=== PATIENT | male | born 1935 | race Caucasian/White ===

== ENCOUNTER → 2017-04-16 | Outpatient (CLI) | payer OTHER ==
[~2017-04-16] MED LIST: IOPAMIDOL (ISOVUE-M 200) 20 ML VIAL ONE; IOPAMIDOL (ISOVUE-M 300) 15 ML VIAL ONE; LIDOCAINE 1% 30 ML SDV ONE; NA BICARBONATE 50 MEQ/50 ML VIAL ONE
== END ==
LOC: FIMAGING 08:29
PROVIDERS: ATTEND Neurological Surgery
PROC: B02BZZZ Computerized Tomography (CT Scan) of Spinal Cord (ICD-10-PCS; principal; 2017-04-16)
DX: M54.16 Radiculopathy, lumbar region (principal)
CPT/HCPCS: 62304; 72132; 72265; Q9966; Q9967

== ENCOUNTER → 2017-04-24 | Outpatient (CLI) | payer OTHER | LOC: BHFA 14:00 | PROVIDERS: ATTEND Internal Medicine Cardiovascular Disease | DX: Z01.818 Encounter for other preprocedural examination (principal); R94.31 Abnormal electrocardiogram [ECG] [EKG]; I25.10 Atherosclerotic heart disease of native coronary artery without angina pectoris; I48.0 Paroxysmal atrial fibrillation ==

== ENCOUNTER → 2017-04-25 | Outpatient (CLI) | payer OTHER | LOC: BHLMT 14:00 | PROVIDERS: ATTEND Internal Medicine Cardiovascular Disease | DX: Z01.810 Encounter for preprocedural cardiovascular examination (principal); I25.10 Atherosclerotic heart disease of native coronary artery without angina pectoris | CPT/HCPCS: 78452; 93017; A9500 ==

== ENCOUNTER 2017-05-15 05:50 | Inpatient (IN) | payer OTHER ==
[2017-05-15] MEDS ORDERED: CHLORHEXIDINE GLUC HIBICLENS 118 ML BTL TP ONE (06:00)
[2017-05-15] MEDS ORDERED: CEFUROXIME 1,500 MG in NS 50 ML IV ONE (06:00)
[2017-05-15] MEDS ORDERED: LIDOCAINE 1% 5 ML SDV ID PRN (06:14)
[2017-05-15] MEDS ORDERED: LR 1,000 ML IV ONE (06:14)
--- NOTE | 2017-05-15 06:38 | PDHPUP ---
History & Physical Update H&P update statement: This history and physical update is based on an assessment of the patient which was completed after admission or registration (within 24 hours), but prior to the surgery/procedure. H&P update: H&P reviewed & patient examined, no change in patient's condition since H&P completed
[2017-05-15] MEDS ORDERED: THROMBIN (BOVINE) 5,000 UNIT VIAL TP ONE (06:40)
[2017-05-15] MEDS ORDERED: SILDENAFIL CITRATE 50 MG TAB PO PRN (06:40)
[2017-05-15] MEDS ORDERED: BUPIVACAINE/EPI 0.25% 30 ML SDV ONE (06:41)
[2017-05-15] MEDS ORDERED: BACITRACIN 50,000 UNITS/10 ML SYR IRR ONE ×2 (06:41→07:10)
[2017-05-15] MEDS ORDERED: MAGNESIUM HYDROXIDE 30 ML UDCUP PO PRN (06:42)
[2017-05-15] MEDS ORDERED: NALOXONE HCL 0.4 MG/ML INJ IVP PRN ×2 (06:42→12:52)
[2017-05-15] MEDS ORDERED: diphenhydrAMINE 25 MG CAP PO PRN (06:42)
[2017-05-15] MEDS ORDERED: ONDANSETRON 4 MG/2 ML VIAL IVP PRN ×2 (06:42→12:52)
[2017-05-15] MEDS ORDERED: BISACODYL 10 MG SUPP PR PRN (06:42)
[2017-05-15] MEDS ORDERED: LACTULOSE 20 GM/30 ML UDCUP PO PRN (06:42)
[2017-05-15] MEDS ORDERED: ONDANSETRON DISINTEGRATING 4 MG TAB PO PRN (06:46)
--- NOTE | 2017-05-15 06:58 | PDANEPAE ---
ANE History of Present Illness 81 yo M h/o stenosis, here for L3-4 L4-5 TLIF ANE Past Medical History - Cardiovascular History Hx Hypertension: Yes Hx Arrhythmias: Yes Hx Chest Pain: Yes Hx Coronary Artery / Peripheral Vascular Disease: Yes Hx CHF / Valvular Disease: No Hx Palpitations: No - Pulmonary History Hx COPD: No Hx Asthma/Reactive Airway Disease: No Hx Recent Upper Respiratory Infection: No Hx Oxygen in Use at Home: No - Neurologic History Hx Cerebrovascular Accident: No Hx Seizures: No Hx Dementia: No - Endocrine History Hx Diabetes: Yes - Renal History Hx Renal Disorders: No - Liver History Hx Hepatic Disorders: No - Neurological & Psychiatric Hx Hx Neurological and Psychiatric Disorders: Yes - Cancer History Hx Cancer: Yes - Congenital Disorder History Hx Congenital Disorders: No - GI History Hx Gastrointestinal Disorders: Yes - Chronic Pain History Chronic Pain: Yes ANE Review of Systems - Exercise capacity METS (RN): 4 METS - Systems Respiratory: Reports: other (SUPRIYA w CPAP) Genitourinary: Reports: other (GERD) - Cardio Pulmonary Function Testing Nuclear stress test: April 2017-EF 70%, equivocal EKG, considered negative by cardiology ANE Patient History - Allergies Allergies/Adverse Reactions: tetracycline [Tetracycline] Allergy (Severe, Verified 04/23/17 15:37) Other-Enter Comments - Home Medications Home medications: home medication list seen and reviewed Home Medications: ARIPiprazole [Abilify 5 mg (*)] 5 mg PO Q2D 02/15/16 [Last Taken 08/31/16] Finasteride [Proscar 5 MG (*)] 5 mg PO HS 02/15/16 [Last Taken 08/31/16] Hydrochlorothiazide [HCTZ (*)] 12.5 mg PO DAILY 02/15/16 [Last Taken 09/01/16] Eszopiclone [Lunesta] 2 mg PO HS #0 04/30/16 [Last Taken 08/31/16] Tapentadol HCl [Nucynta ER] 100 mg PO BID@08,20 #0 05/31/16 [Last Taken 08:00] Citalopram [CeleXA 20 MG] 50 mg PO DAILY 09/01/16 [Last Taken 09/01/16] Famotidine [Pepcid] 40 mg PO DAILY 09/01/16 [Last Taken 09/01/16] Metoprolol Succinate Xr [Toprol Xl 25 mg (*)] 25 mg PO DAILY 09/01/16 [Last Taken 05/15/17] Rivaroxaban [Xarelto] 20 mg PO HS 09/01/16 [Last Taken 08/31/16] Rosuvastatin Calcium [Crestor] 10 mg PO HS 09/01/16 [Last Taken 08/31/16] oxyCODONE IR [Oxycodone Ir (*)] 5 mg PO Q4H PRN 09/01/16 [Last Taken 09/01/16] metFORMIN HCL [Glucophage 500 mg (*)] 500 mg PO BIDMEAL 09/02/16 [Last Taken 12/17] Cholecalciferol Vit D3 [Vitamin D3 2000 units tab (OTC)] 2,000 units PO DAILY [Last Taken Unknown] Herbals/Supplements -Info Only 1 ea PO DAILY 04/19/17 [Last Taken Unknown] Sildenafil Citrate [Viagra 50 MG (*)] 50 mg PO DAILY PRN 04/19/17 [Last Taken Unknown] - NPO status NPO Since - Liquids (Date): 05/14/17 NPO Since - Liquids (Time): 21:00 NPO Since - Solids (Date): 05/14/17 NPO Since - Solids (Time): 21:00 - Anes Hx Anes Hx: no prior problems - Smoking Hx Smoking Status: Never smoked - Alcohol Use Alcohol Use: Rarely - Family Anes Hx Family Anes Hx: none Family Hx Anesthesia Complications: NA ANE Labs/Vital Signs - Labs - CBC WBC: 6.3 HGB: 17.1 HCT: 47.8 - Labs - BMP Sodium: 139 Potassium: 4.4 Chloride: 99 CO2: 28 Glucose: 151 BUN: 17 Creatinine: 1.03 - Vital Signs Blood Pressure: 132/71 Heart Rate: 64 Respiratory Rate: 16 O2 Sat (%): 92 Height: 177.8 cm Weight: 95.254 kg ANE Physical Exam - Airway Neck exam: decreased ROM, increased neck circumference Mallampati Score: Class 3 Mouth exam: normal dental/mouth exam - Pulmonary Pulmonary: no respiratory distress - Cardiovascular Cardiovascular: regular rate and rhythym - ASA Status ASA Status: III ANE Anesthesia Plan Anesthesia Plan: general endotracheal anesthesia Lines/Monitors: arterial line
[2017-05-15] MEDS ORDERED: MIDAZOLAM 2 MG/2 ML VIAL IVP ONE (07:05)
[2017-05-15] MEDS ORDERED: fentaNYL 100 MCG/2 ML INJ ONE ×2 (07:20→14:41)
[2017-05-15] MEDS ORDERED: REMIFENTANIL HCL 1 MG VIAL ONE ×3 (07:20→11:35)
[2017-05-15] MEDS ORDERED: KETAMINE 100 MG/10 ML SYR ONE (07:21)
[2017-05-15] MEDS ORDERED: PROPOFOL 200 MG/20 ML VIAL ONE (07:21)
[2017-05-15] MEDS ORDERED: PROPOFOL/EMULSION 500 MG/50 ML BOTTLE IV ONE ×3 (07:21→11:36)
[2017-05-15] MEDS ORDERED: ROCURONIUM 50 MG/5 ML VIAL ONE (07:25)
[2017-05-15] MEDS ORDERED: LIDOCAINE 2% 100 MG/5 ML SYR ONE (07:25)
[2017-05-15] MEDS ORDERED: PHENYLEPHRINE HCL 100 MCG/ML SYR ONE ×3 (08:30→12:22)
[2017-05-15] MEDS ORDERED: FAMOTIDINE 20 MG TAB PO SCH (09:00)
[2017-05-15] MEDS ORDERED: OXYCODONE/APAP 5/325 TAB PO PRN (12:52)
[2017-05-15] MEDS ORDERED: ACETAMINOPHEN 500 MG TAB PO PRN (12:52)
[2017-05-15] MEDS ORDERED: PROMETHAZINE HCL 25 MG/ML INJ IVP PRN (12:52)
[2017-05-15] MEDS ORDERED: HYDROmorphONE/DILAUDID 2 MG/ML INJ ONE ×2 (13:17→15:06)
--- NOTE | 2017-05-15 14:24 | SOAPPROG ---
SOAP Progress Note Assessment/Plan: Post Op Visit: S: Awake and alert, NAD. Pt with expected lower back pain/abd pain-incisional O: AFVSS/PERRLA/EOMI no droop CN 2-12 grossly intact +lt touch 5/5 BUE/BLE = CDI x 2 no drain A/P: 81 yo male that is s/p TLIF at L3/4 and L4/5 with removal of SCS -orders in place -Dr Delgado to see pt as well -flat for 3 days -call with any questions or concerns 05/15/17 14:22 Objective: Vital Signs Temp Pulse Resp BP Pulse Ox 36.8 C 64 16 132/71 H 92 05/15/17 06:38 05/15/17 07:05 05/15/17 07:05 05/15/17 07:05 05/15/17 07:05 ICD10 Worksheet Patient Problems: Problems Problem Status Onset Failed spinal cord stimulator Acute Lumbago Acute Lumbar stenosis Acute Neurogenic claudication Acute CAD (coronary artery disease) Acute Hyperlipemia Acute Ribs, multiple fractures Acute - ICD10 Problem Qualifiers (1) Lumbar stenosis (2) Lumbago Qualifiers: Chronicity: C Back pain laterality: B Sciatica presence: S Sciatica laterality: S (3) Failed spinal cord stimulator Qualifiers: Encounter type: E (4) Neurogenic claudication
[2017-05-15] MEDS: fentaNYL 100 MCG/2 ML INJ IVP PRN ×2 (14:43→14:50)
[2017-05-15] MEDS: HYDROmorphONE/DILAUDID 1 MG/ML SYR IVP PRN ×2 (15:16→15:31)
[2017-05-15] MEDS ORDERED: HYDROmorphONE/DILAUDID 1 MG/ML SYR IVP PRN (15:18)
[2017-05-15] MEDS ORDERED: HYDROmorphONE/DILAUDID 2 MG/ML INJ IVP PRN (15:47)
--- NOTE | 2017-05-15 16:20 | POSTANESTH ---
Post Anesthetic Evaluation Cardiovascular Status: Normal, Stable, Similar to Pre-Op Cond Respiratory Status: Normal, Stable, Similar to Pre-op Cond. Level of Consciousness/Mental Status: Can Participate in Eval, Moderately Sleepy Pain Control: Adequate, Prn Tx Ordered Nausea/Vomiting Control: Adequate, Prn Tx Ordered Complications Possibly Related to Anesthesia: None Noted
[2017-05-15] MEDS: HYDROCHLOROTHIAZIDE 12.5 MG CAP PO SCH (16:37)
[2017-05-15] MEDS: metFORMIN HCL 500 MG TAB PO SCH ×2 (16:37→17:57)
[2017-05-15] MEDS: METOPROLOL SUCCINATE XR 25 MG TAB PO SCH (16:37)
[2017-05-15] MEDS: CITALOPRAM 20 MG TAB PO SCH (16:38)
[2017-05-15] MEDS: FAMOTIDINE 20 MG TAB PO SCH ×2 (16:38→18:32)
[2017-05-15] MEDS: ARIPiprazole 5 MG TAB PO SCH (16:38)
[2017-05-15] MEDS: morphINE SR 15 MG TAB PO SCH ×2 (16:39→20:07)
[2017-05-15] MEDS: TAPENTADOL HCL 100 MG PO SCH ×2 (16:40→21:25)
[2017-05-15] MEDS: SENNOSIDES/DOCUSATE SODIUM TAB PO SCH ×2 (16:40→20:07)
[2017-05-15] MEDS: oxyCODONE IR 5 MG TAB PO PRN ×2 (16:47→21:25)
[2017-05-15] MEDS: ACETAMINOPHEN 325 MG TAB PO PRN ×2 (16:48→21:25)
[2017-05-15] MEDS: NS 1,000 ML IV SCH (16:49)
[2017-05-15] MEDS: ceFAZolin 2 GM/DEXTROSE 100 ML IV SCH ×2 (16:50→21:24)
--- NOTE | 2017-05-15 17:00 | GOP ---
[f rep st] OPERATIVE REPORT DATE OF OPERATION: 05/15/2017 SURGEON: Chele Delgado MD PREOPERATIVE DIAGNOSIS: Severe low back pain, lumbar spondylolisthesis L4-5, lumbar degenerative di sk disease, severe lumbar stenosis L4-5, L3-4, chronic low back pain, failed thoracic spinal cord st imulator, percutaneous electrodes, and pulse generator. POSTOPERATIVE DIAGNOSIS: Severe low back pain, lumbar spondylolisthesis L4-5, lumbar degenerative d isk disease, severe lumbar stenosis L4-5, L3-4, chronic low back pain, failed thoracic spinal cord s timulator, percutaneous electrodes, and pulse generator. PROCEDURE PERFORMED: 1. Posterolateral and intervertebral arthrodesis at L3-4, L4-5, with bilateral decompressions L3-4, L4-5, and a posterolateral and intervertebral arthrodesis at those levels ([id number]), posterior segmental instrumentation L3, L4, L5 ([id number]), microscope, spinal stereotaxy, same-incision bone gra ft harvest, placement of expandable biomechanical intervertebral device without anchors at L3-4, L4- 5. 2. Removal of entire spinal cord stimulator electrode system of percutaneous electrode leads, lead extensions, removal of ventral pulse generator. There are 3 separate incisions total for both of th dhiraj surgeries. FINDINGS: INDICATIONS: The patient is a 81-year-old, who has a long history of severe axial low back pain and actually underwent spinal cord stimulator placement for his chronic pain. This ultimately failed. There was no complication from the stimulator, but it simply lost its effectiveness and he was no l onger using it. He also had terrible spondylolisthesis at L4-5, critical spinal stenosis at that le randy. He also had spinal stenosis at L3-4, and I suggested 2-level lumbar laminectomy and fusion at L3-4, L4-5, and the risk of adjacent segment disease was discussed. He knew there was a chance surg jose would fail to eliminate his pain. He knew there was risk of nerve injury, spinal fluid leak, ps eudoarthrosis, and the possible need for future surgery. We discussed his spinal cord stimulator, w yrn prevents him from getting an MRI, and he was no longer using this. It no longer provided effec tive pain relief and he did decide to have this removed. At the time of our original posting of the surgery, the patient did not necessarily want it removed, but he did elect to have it removed today , and that decision was made this morning. There were no complications or anything wrong with the s timulator itself, it just simply was not effective and it was now a useless foreign body in his body . He did want it removed. DESCRIPTION OF PROCEDURE: Patient was taken to the operating room, placed in supine position. Gene ral anesthesia was begun. He was flipped prone onto the Trnet table. Care was taken to pad all p oints of contact. His back was sterilely prepped and draped in the usual fashion. We had marked ou t the area of the spinal cord stimulator. The electrode extension incision on the right flank was m arked and we shot x-rays, looking for the electrode extensions. They were considerably more ventral than this incision. We elected, therefore, not to do anything from the posterior approach with the electrode extensions themselves. We made a midline incision above the L3-4, L4-5 interspace. The subcutaneous tissue was dissected using the PlasmaBlade down through the fascia, and a subperiosteal dissection was made down the inferior lamina of L2. The lamina of L3, L4 and L5 was exposed. Loca lizing x-ray was taken. We denuded the bilateral hypertrophic facet joints at L3-4, L4-5. We prese rved the L2-3 facet joints rostrally. The Stealth reference frame was attached. An O-arm spin was made. We placed bilateral screws at 5, 4, and 3. We used 35 mm screws at 5, 40 mm screws at 4, and 45 mm screws at L3. All the screws stimulated at acceptable levels. We then removed all the soft tissue to bone at L3-4, L4-5, placed a self-retaining retractor, harvested the entire L4 spinous pro cess and the inferior L3 spinous process. We then completely removed the L4 lamina by thinning the lamina down with a matchstick drill bit and harvesting this bone for autologous grafting purposes. We introduced the operating microscope, and under the scope we opened the ligamentum flavum at L4-5 and decompressed at L4-5 in the area of the bilateral hypertrophic L4-5 facet joints. The dura was pretty firmly adherent to the ligamentum flavum and we spent considerable time dissecting the dura f ree from the ligamentum flavum and had a good decompression. We began on the left at L4-[address] our way on the right side of the spinal canal. We decompressed the L5 pedicles all way up to the inferior L4 pedicles, and there was really a remarkable amount of tissue located in the spinal canal on the right-hand side at L4-5. All this was removed and the neural foramen was thoroughly decompr essed. As we worked our way rostrally on the right-hand side, as we approached the insertion of the ligamentum flavum on the bone the L4 lamina became fused to the dura. We went to the left-hand lisa e, where we decompressed on the left, worked our way up adjacent to the L4 pedicle and the L3-4 spac e. Here, too, the dura was thoroughly stuck on the left at L3-4, but we were able to dissect it radha e. We dissected this free, decompressed the left L3-4 area, and then worked our way rostrally to th e L3-4 facet joint on the right-hand side, around the area of the dural adhesions on the right-hand side, and we worked our way all the way in the L3 neural foramen at the L3-4 level and decompressed the exiting L3 nerve root. We then began working our way inferiorly toward the area where the dura was stuck to the bone at the L4 lamina. We did remove the hypertrophic right L3-4 facet completely, decompressing the right lateral recess, and as we worked our way inferiorly the hypertrophic portio n of the facet joint was nicely decompressed, and we decompressed the right lateral recess, the wyatt ersing L4 nerve root at that level, and we then worked our way from the L4-5 foramen rostrally and t ried to work our way lateral to this, and we completely this area of dural adhesion where the bone was stuck to the dura away from its attachments to the right L4 pedicle. We drilled and th en used a Kerrison to come through the L4 pars interarticularis, and this fractured this fragment up out of the spinal canal, and now it was simply a free-floating fragment. It was firmly adherent to the dura, and we decided not to remove it. From a right-sided approach we swept the thecal sac med ially at L3-4, removed the disk at L3-4, roughened the subchondral bone to create arthrodesis. We d id likewise at L4-5 from a right-sided approach, where we removed the L4-5 disk and roughened the chaudhry bchondral bone to create arthrodesis at L4-5. We then sized each space and chose an 8 x 28 mm expan dable cage. It was packed with BMP. We placed bone morphogenic protein and bone autograft into the disk spaces at L3-4, L4-5, and then inserted the devices under fluoroscopic guidance and expanded t hem under fluoroscopic guidance. We were very happy with the position of the devices. They were hussein th confirmed to be out of the spinal canal, both radiographically as well as visually. Our interver tebral arthrodesis was concluded. We then went back to the L3-4 level, where the bone was stuck to the dura, and we began prying and l ooking at this bone. Just deep to it along the medial edge of this floating piece of bone that was still part of the dura itself, there was a small dural bleb present. The arachnoid was intact. We Valsalva'd to 30 and held it at 30, and a tiny amount of CSF leaked at this very high pressure. It simply wept through the area. It was not actually leaking per se. We inspected the area thoroughly . There was no way to completely remove this bone without resecting a large portion of dura. It si mply could not be freed. We felt that this has worsened the small dural weakening in the dural bleb . We elected to leave it in situ, and the area of the dural bleb was actually deep to the bony lesli nd. It was scarred into the dura. This would help reinforce the area. We irrigated with large nettie unts of antibiotic saline, decorticated all remaining bone posterolaterally bilaterally. We distrac melissa significantly at L3-4, L4-5. We did have a very good lordosis. All the screws were torqued acc ording to company specification. We placed bony autograft and BMP posterolaterally bilaterally, and then closed the incision in multiple layers using Vicryl sutures. A running PDS was placed in the skin itself. Steri-Strips were applied. This concluded the main portion of the procedure. During our exposure, we had removed the percutaneous stimulator wires that were present in the midli ne in the lumbar region, and we cut these wires distal to the connection. The connectors, again, we re located in the right flank. These had been completely removed. There was no evidence of any add itional wires in the spinal canal. Incision was now closed. We flipped the patient back on the hos pital bed and then shot localizing x-rays to localize the right-sided connectors, and the pulse gene rator was quite obvious in the right paraumbilical region. We then sterilely prepped and draped the patient once again, and we made a transverse incision above the pulse generator itself and dissecte d down on the pulse generator using the PlasmaBlade. We removed the pulse generator and freed all t he attachments from the wires. The wires, however, were still attached to the electrode extensions out on the right flank. We then cut down based upon radiographic data right on top of the connector s, and there they were found deep to Cameron fascia. We then dissected down onto them, removed them, and the wires that went posteriorly toward the lumbar incision, those came out easily. We cut away the connector, and this allowed us to remove the pulse generator and both wires completely. We irr igated the incisions with antibiotic saline solution and then closed them both in multiple layers us ing Vicryl sutures. We then placed Steri-Strips over the incisions, placed a dressing, and then rev ersed the patient from anesthesia, extubated him, and transferred to recovery room in stable conditi on. There were no complications. INSTRUMENTATION USE: P[employer]el[employer] Solera 5.5 mm system with titanium rods and 8 x 28 mm Elevate expand able cages at each level. We used 2 mg of bone morphogenic protein. COMPLICATIONS: Unintended durotomy, right L3-4. /[id number]/MODL
[2017-05-15] MEDS: METHOCARBAMOL 750 MG TAB PO PRN ×2 (17:57→23:44)
[2017-05-15] MEDS: ROSUVASTATIN CALCIUM 10 MG TAB PO SCH (20:07)
[2017-05-15] MEDS: ZOLPIDEM TARTRATE 5 MG TAB PO SCH (20:08)
[2017-05-15] MEDS: FINASTERIDE 5 MG TAB PO SCH (20:08)
[2017-05-16] MEDS: oxyCODONE IR 5 MG TAB PO PRN ×5 (02:31→19:59)
[2017-05-16] MEDS: ACETAMINOPHEN 325 MG TAB PO PRN ×4 (02:31→21:35)
[2017-05-16 05:10] LABS: % IMMATURE GRANULYOCYTES 0.6 % (0.0-1.1); ABSOLUTE IMMATURE GRANULOCYTES 0.06 10^3/uL (0.00-0.10); ADD DIFF? NO; ADD MORPH? NO; ADD SCAN? NO; ATYPICAL LYMPHOCYTE FLAG 0 (0-99); FRAGMENT RBC FLAG 0 (0-99); HEMATOCRIT 43.1 % (40.0-51.0); HEMOGLOBIN 14.8 g/dL (13.7-17.5); LEFT SHIFT FLG 0 (0-99); LIPEMIA HEMOLYSIS FLAG 90 (0-99); MEAN CELL HEMOGLOBIN 30.3 pg (27.9-34.1); MEAN CELL HEMOGLOBIN CONCENTR. 34.3 g/dL (32.4-36.7); MEAN CELL VOLUME 88.3 fL (81.5-99.8); PLATELET CLUMPS FLAG 20 (0-99); PLATELET COUNT 140 10^3/uL (150-400); RED BLOOD CELL COUNT 4.88 10^6/uL (4.40-6.38); RED CELL DISTRIBUTION WIDTH 13.9 % (11.5-15.2)
[2017-05-16 05:28] LABS: ANION GAP 7 mEq/L (8-16); CALCIUM 8.7 mg/dL (8.5-10.4); CARBON DIOXIDE 22 mEq/l (22-31); CHLORIDE 100 mEq/L (97-110); CREATININE 0.8 mg/dL (0.7-1.3); GLOMERULAR FILTRATION RATE > 60; GLUCOSE 113 mg/dL (70-100); POTASSIUM 4.2 mEq/L (3.5-5.2); SODIUM 129 mEq/L (134-144)
[2017-05-16] MEDS: NS 1,000 ML IV SCH ×2 (06:06→19:53)
[2017-05-16] MEDS: METHOCARBAMOL 750 MG TAB PO PRN ×4 (06:35→21:34)
--- NOTE | 2017-05-16 07:18 | NEUSURGPN ---
Date of Surgery: 05/15/17 Post Op Day: 1 Assessment/Plan: Assessment: 81 yo male that is s/p TLIF at L3/4 and L4/5 with removal of SCS with small dural bleb Plan: -s/p TLIF L3/4 and L4/5 with dural bleb-no CSF leak -flat for 3 days until 05/18 -PT/OT on hold -ICE CREAM SERVER ordered -brace when out of bed after able to get up likely after Saturday -post op xrays on hold -low Na this am of 129-added Salt Tabs and will recheck pt tomorrow with labs -dressing changed by myself -Dr Delgado to see pt as well -call with any questions or concerns -pt and understand and agree 05/15/17 14:22 Subjective: No new complaints or concerns. Pt with expected lower back pain. No mackey/neck/ chest/abd or gu complaints. No f/c/n/v/d. at bedside Objective: AFVSS/PERRLA/EOMI no droop CN 2-12 grossly intact +lt touch 5/5 BUE/BLE = CDI x 2 no drain Neuro Check Frequency: per routine Urinary Catheter in Place: Yes Urinary Catheter Indication: Other (Use Comment) (bedrest) Catheter Insertion Date: 05/15/17 - Physician Discussed Patient with : Danny Patient Seen by : Danny Neurosurgery Physical Exam - Vitals, I&O, Labs I and O 05/15/17 05/16/17 05/17/17 05:59 05:59 05:59 Intake Total 1704 Output Total 650 Balance 1054 Weight 95.254 kg Intake: Oral (ml) 600 IV Intake (ml) 65 IV Infused (ml) 1039 Ns 1,000 ml @ 75 mls/hr 839 IV CONT GRICEL Rx#: [id number] ceFAZolin 2 GM/DEXTROSE 200 100 ml @ 200 mls/hr IV Q8HRS GRICEL Rx#:[id number] Output: Urine (ml) 650 Catheter 650 Vital Signs Temp Pulse Resp BP Pulse Ox 37.1 C 74 16 133/51 H 95 05/16/17 04:00 05/16/17 04:00 05/16/17 04:00 05/16/17 04:00 05/16/17 04:00 Laboratory Results 05/16/17 04:33 05/16/17 04:33 ICD10 Worksheet Patient Problems: Problems Problem Status Onset Failed spinal cord stimulator Acute Lumbago Acute Lumbar stenosis Acute Neurogenic claudication Acute CAD (coronary artery disease) Acute Hyperlipemia Acute Ribs, multiple fractures Acute - ICD10 Problem Qualifiers (1) Lumbar stenosis (2) Lumbago Qualifiers: Chronicity: C Back pain laterality: B Sciatica presence: S Sciatica laterality: S (3) Failed spinal cord stimulator Qualifiers: Encounter type: E (4) Neurogenic claudication
[2017-05-16] MEDS: FAMOTIDINE 20 MG TAB PO SCH (07:49)
[2017-05-16] MEDS: morphINE SR 15 MG TAB PO SCH ×2 (07:50→19:58)
[2017-05-16] MEDS: CITALOPRAM 20 MG TAB PO SCH (07:50)
[2017-05-16] MEDS: HYDROCHLOROTHIAZIDE 12.5 MG CAP PO SCH (07:51)
[2017-05-16] MEDS: metFORMIN HCL 500 MG TAB PO SCH ×2 (07:51→18:18)
[2017-05-16] MEDS: SENNOSIDES/DOCUSATE SODIUM TAB PO SCH ×2 (07:54→19:55)
[2017-05-16] MEDS: SODIUM CHLORIDE 1,000 MG TAB PO SCH ×3 (07:54→18:18)
[2017-05-16] MEDS: METOPROLOL SUCCINATE XR 25 MG TAB PO SCH (07:55)
[2017-05-16] MEDS: HYDROmorphONE/DILAUDID 6 MG/30 ML PCA IV PRN ×2 (07:56→21:32)
[2017-05-16] MEDS: POLYETHYLENE GLYCOL 3350 17 GM PKT PO PRN (07:56)
[2017-05-16] MEDS: TAPENTADOL HCL 100 MG PO SCH ×2 (09:28→19:55)
[2017-05-16] MEDS: ZOLPIDEM TARTRATE 5 MG TAB PO SCH (19:57)
[2017-05-16] MEDS: ROSUVASTATIN CALCIUM 10 MG TAB PO SCH (19:59)
[2017-05-16] MEDS: FINASTERIDE 5 MG TAB PO SCH (20:00)
[2017-05-17 05:11] LABS: ALANINE AMINOTRANSFERASE 37 IU/L (21-72); ALKALINE PHOSPHATASE 37 IU/L (38-126); ANION GAP 6 mEq/L (8-16); ASPARTATE AMINOTRANSFERASE 65 IU/L (17-59); BILIRUBIN,TOTAL 1.4 mg/dL (0.1-1.4); CALCIUM 8.2 mg/dL (8.5-10.4); CARBON DIOXIDE 26 mEq/l (22-31); CHLORIDE 97 mEq/L (97-110); CREATININE 0.8 mg/dL (0.7-1.3); GLOMERULAR FILTRATION RATE > 60; GLUCOSE 87 mg/dL (70-100); POTASSIUM 3.9 mEq/L (3.5-5.2); SODIUM 129 mEq/L (134-144); TOTAL PROTEIN 5.4 g/dL (6.3-8.2)
[2017-05-17] MEDS: ACETAMINOPHEN 325 MG TAB PO PRN (06:21)
[2017-05-17] MEDS: oxyCODONE IR 5 MG TAB PO PRN ×2 (06:22→20:56)
[2017-05-17] MEDS: METHOCARBAMOL 750 MG TAB PO PRN ×2 (06:22→17:12)
[2017-05-17] MEDS: SODIUM CHLORIDE 1,000 MG TAB PO SCH ×3 (09:06→17:12)
[2017-05-17] MEDS: metFORMIN HCL 500 MG TAB PO SCH ×2 (09:07→17:11)
[2017-05-17] MEDS: FAMOTIDINE 20 MG TAB PO SCH (09:07)
[2017-05-17] MEDS: ARIPiprazole 5 MG TAB PO SCH (09:07)
[2017-05-17] MEDS: METOPROLOL SUCCINATE XR 25 MG TAB PO SCH (09:07)
[2017-05-17] MEDS: CITALOPRAM 20 MG TAB PO SCH (09:07)
[2017-05-17] MEDS: POLYETHYLENE GLYCOL 3350 17 GM PKT PO PRN ×2 (09:08→17:11)
[2017-05-17] MEDS: HYDROCHLOROTHIAZIDE 12.5 MG CAP PO SCH (09:08)
[2017-05-17] MEDS: SENNOSIDES/DOCUSATE SODIUM TAB PO SCH ×2 (09:08→20:56)
[2017-05-17] MEDS: morphINE SR 15 MG TAB PO SCH ×2 (09:11→20:55)
--- NOTE | 2017-05-17 09:54 | NEUSURGPN ---
Date of Surgery: 05/15/17 Post Op Day: 2 Assessment/Plan: Assessment: 81 yo male that is s/p TLIF at L3/4 and L4/5 with removal of SCS with small dural bleb Plan: -s/p TLIF L3/4 and L4/5 with dural bleb-no CSF leak -flat for 3 days until 05/18 -will slowly raise HOB on 05/18, 10 degrees/hr until 50 degrees then oob to chair if tolerated without headaches -PT/OT on hold -BUTTON PUNCHER ordered, will try to wean in the next 1-2 days -will increase ms contin dose today for pain management -brace when out of bed after able to get up likely after Saturday -post op xrays on hold -will continue salt tabs for low na -call with any questions or concerns -pt and understand and agree Subjective: Patient has expected lower back pain, denies any lower extremity radic symptoms , feels he is not able to control his pain and is using BUTTON PUNCHER regularly rates pain 8/10. Denies any headache. No f/c/n/v/d. Objective: AFVSS/PERRLA/EOMI no droop CN 2-12 grossly intact +lt touch 5/5 BUE/BLE = Dressing CDI no drain Neuro Check Frequency: per routine Urinary Catheter in Place: Yes Urinary Catheter Indication: Other (Use Comment) (bedrest) Catheter Insertion Date: 05/15/17 - Physician Discussed Patient with : Danny Neurosurgery Physical Exam - Vitals, I&O, Labs I and O 05/16/17 05/17/17 05/18/17 05:59 05:59 05:59 Intake Total 1704 2800 Output Total 650 1450 Balance 1054 1350 Weight 95.254 kg Intake: Oral (ml) 600 800 IV Intake (ml) 65 IV Infused (ml) 1039 2000 Ns 1,000 ml @ 75 mls/hr 839 2000 IV CONT GRICEL Rx#: [id number] ceFAZolin 2 GM/DEXTROSE 200 100 ml @ 200 mls/hr IV Q8HRS GRICEL Rx#:[id number] Output: Urine (ml) 650 1450 Catheter 650 1450 Other: Intake Quantity Yes Sufficient Post Void Residual Scan Volume (ml) Urinal 774 Vital Signs Temp Pulse Resp BP Pulse Ox 36.8 C 90 14 154/65 H 95 05/17/17 08:12 05/17/17 09:07 05/17/17 08:12 05/17/17 09:08 05/17/17 08:12 Laboratory Results 05/16/17 04:33 05/17/17 04:34 ICD10 Worksheet Patient Problems: Problems Problem Status Onset Failed spinal cord stimulator Acute Lumbago Acute Lumbar stenosis Acute Neurogenic claudication Acute CAD (coronary artery disease) Acute Hyperlipemia Acute Ribs, multiple fractures Acute
[2017-05-17] MEDS: TAPENTADOL HCL 100 MG PO SCH ×2 (10:16→21:17)
[2017-05-17] MEDS: HYDROmorphONE/DILAUDID 6 MG/30 ML PCA IV PRN (12:18)
[2017-05-17] MEDS: FINASTERIDE 5 MG TAB PO SCH (20:56)
[2017-05-17] MEDS: ROSUVASTATIN CALCIUM 10 MG TAB PO SCH (20:57)
[2017-05-17] MEDS: ZOLPIDEM TARTRATE 5 MG TAB PO SCH (21:18)
[2017-05-17] MEDS: NS 1,000 ML IV SCH (21:42)
[2017-05-18] MEDS: METHOCARBAMOL 750 MG TAB PO PRN ×2 (01:29→16:11)
[2017-05-18] MEDS: oxyCODONE IR 5 MG TAB PO PRN ×2 (01:29→06:33)
[2017-05-18] MEDS: morphINE SR 15 MG TAB PO SCH ×2 (08:54→21:08)
[2017-05-18] MEDS: ENOXAPARIN 40 MG/0.4 ML SYR SC SCH (08:54)
[2017-05-18] MEDS: FAMOTIDINE 20 MG TAB PO SCH (08:55)
[2017-05-18] MEDS: SENNOSIDES/DOCUSATE SODIUM TAB PO SCH ×2 (08:55→21:08)
[2017-05-18] MEDS: ARIPiprazole 5 MG TAB PO SCH (08:55)
[2017-05-18] MEDS: HYDROCHLOROTHIAZIDE 12.5 MG CAP PO SCH (08:55)
[2017-05-18] MEDS: CITALOPRAM 20 MG TAB PO SCH (08:56)
[2017-05-18] MEDS: metFORMIN HCL 500 MG TAB PO SCH ×2 (08:56→18:18)
[2017-05-18] MEDS: SODIUM CHLORIDE 1,000 MG TAB PO SCH ×3 (08:58→18:18)
[2017-05-18] MEDS: METOPROLOL SUCCINATE XR 25 MG TAB PO SCH (08:58)
--- NOTE | 2017-05-18 08:58 | SOAPPROG ---
DERICK Progress Note Assessment/Plan: Assessment: 81 yo male that is POD#3 s/p TLIF at L3/4 and L4/5 with removal of SCS with small dural bleb Plan: -s/p TLIF L3/4 and L4/5 with dural bleb-no CSF leak -will slowly raise HOB, 10 degrees/hr until 50 degrees then oob to chair if tolerated without headaches -PT/OT today if able to get OOB -pain minimal with oral meds -LSO brace when OOB -lumbar xrays once OOB -hyponatremia -- sodium 129 yesterday, on salt tabs, ordered new BMP for today to followup -on lovenox for dvt ppx -call with any questions or concerns -pt and understand and agree 05/18/17 08:55 05/18/17 08:58 Subjective: no complaints today Objective: Vital Signs Temp Pulse Resp BP Pulse Ox 37 C 94 16 150/78 H 93 05/18/17 07:45 05/18/17 07:45 05/18/17 07:45 05/18/17 07:45 05/18/17 07:45 Laboratory Results 05/16/17 04:33 05/17/17 04:34 05/17/17 05/18/17 05/19/17 05:59 05:59 05:59 Intake Total 2800 1000 Output Total 1450 1750 Balance 1350 -750 AAOx3, full strength, no drift, sensation intact, dressing c/d/i - Pending Discharge Pending Discharge Within 24 Hours: No Pending Discharge Within 48 Hours: Yes Pending Discharge Date: 05/20/17 Pending Discharge Time: 11:00 ICD10 Worksheet Patient Problems: Problems Problem Status Onset Failed spinal cord stimulator Acute Lumbago Acute Lumbar stenosis Acute Neurogenic claudication Acute CAD (coronary artery disease) Acute Hyperlipemia Acute Ribs, multiple fractures Acute
[2017-05-18] MEDS: TAPENTADOL HCL 100 MG PO SCH ×2 (10:28→21:50)
[2017-05-18] MEDS: NS 1,000 ML IV SCH ×2 (10:29→21:16)
[2017-05-18 11:08] LABS: ANION GAP 8 mEq/L (8-16); CALCIUM 8.1 mg/dL (8.5-10.4); CARBON DIOXIDE 26 mEq/l (22-31); CHLORIDE 94 mEq/L (97-110); CREATININE 0.6 mg/dL (0.7-1.3); GLOMERULAR FILTRATION RATE > 60; GLUCOSE 91 mg/dL (70-100); POTASSIUM 3.6 mEq/L (3.5-5.2); SODIUM 128 mEq/L (134-144)
[2017-05-18] MEDS: ACETAMINOPHEN 325 MG TAB PO PRN (16:11)
[2017-05-18] MEDS: FINASTERIDE 5 MG TAB PO SCH (21:08)
[2017-05-18] MEDS: ROSUVASTATIN CALCIUM 10 MG TAB PO SCH (21:08)
[2017-05-18] MEDS: ZOLPIDEM TARTRATE 5 MG TAB PO SCH (21:10)
[2017-05-19] MEDS: oxyCODONE IR 5 MG TAB PO PRN (02:34)
[2017-05-19] MEDS: METHOCARBAMOL 750 MG TAB PO PRN ×3 (02:34→17:38)
--- NOTE | 2017-05-19 09:42 | SOAPPROG ---
DERICK Progress Note Assessment/Plan: Assessment: 81 yo male that is POD#4 s/p TLIF at L3/4 and L4/5 with removal of SCS with small dural bleb Plan: -s/p TLIF L3/4 and L4/5 with dural bleb-no CSF leak -tolerated being OOB, dressing is dry and no headaches. -PT/OT today. He walked a little yesterday but not much. 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, sodium 128 today, will restrict free water , continue salt tabs 3g daily, consider medicine consult if not improving tomorrow -on lovenox for dvt ppx -call with any questions or concerns -pt and understand and agree 05/18/17 08:55 05/18/17 08:58 05/19/17 09:39 Subjective: no major complaints Objective: Vital Signs Temp Pulse Resp BP Pulse Ox 36.7 C 88 20 159/81 H 96 05/19/17 08:00 05/19/17 08:00 05/19/17 08:00 05/19/17 08:00 05/19/17 08:00 Laboratory Results 05/16/17 04:33 05/18/17 10:07 05/18/17 05/19/17 05/20/17 05:59 05:59 05:59 Intake Total 1000 2200 Output Total 1750 1650 250 Balance -750 550 -250 AAOx3, full strength/sensation, no drift, dressing c/d/i - Pending Discharge Pending Discharge Within 24 Hours: Yes Pending Discharge Date: 05/20/17 Pending Discharge Time: 11:00 ICD10 Worksheet Patient Problems: Problems Problem Status Onset Failed spinal cord stimulator Acute Lumbago Acute Lumbar stenosis Acute Neurogenic claudication Acute CAD (coronary artery disease) Acute Hyperlipemia Acute Ribs, multiple fractures Acute
[2017-05-19] MEDS: ENOXAPARIN 40 MG/0.4 ML SYR SC SCH (10:33)
[2017-05-19] MEDS: metFORMIN HCL 500 MG TAB PO SCH ×2 (10:33→17:38)
[2017-05-19] MEDS: FAMOTIDINE 20 MG TAB PO SCH (10:33)
[2017-05-19] MEDS: METOPROLOL SUCCINATE XR 25 MG TAB PO SCH (10:34)
[2017-05-19] MEDS: HYDROCHLOROTHIAZIDE 12.5 MG CAP PO SCH (10:34)
[2017-05-19] MEDS: SENNOSIDES/DOCUSATE SODIUM TAB PO SCH ×2 (10:35→21:13)
[2017-05-19] MEDS: SODIUM CHLORIDE 1,000 MG TAB PO SCH ×3 (10:36→17:37)
[2017-05-19] MEDS: CITALOPRAM 20 MG TAB PO SCH (10:36)
[2017-05-19] MEDS: morphINE SR 15 MG TAB PO SCH ×2 (10:36→21:14)
[2017-05-19] MEDS: ARIPiprazole 5 MG TAB PO SCH (10:41)
[2017-05-19] MEDS: TAPENTADOL HCL 100 MG PO SCH ×2 (11:58→22:03)
[2017-05-19] MEDS: NS 1,000 ML IV SCH (13:00)
[2017-05-19] MEDS: ACETAMINOPHEN 325 MG TAB PO PRN (17:37)
[2017-05-19] MEDS: FINASTERIDE 5 MG TAB PO SCH (21:14)
[2017-05-19] MEDS: ZOLPIDEM TARTRATE 5 MG TAB PO SCH ×2 (21:14→22:04)
[2017-05-19] MEDS: ROSUVASTATIN CALCIUM 10 MG TAB PO SCH (21:15)
--- NOTE | 2017-05-20 07:26 | NEUSURGPN ---
Date of Surgery: 05/15/17 Post Op Day: 5 Assessment/Plan: Assessment: 81 yo male that is POD #5 s/p TLIF at L3/4 and L4/5 with removal of SCS with small dural bleb Plan: -s/p TLIF L3/4 and L4/5 with dural bleb-no CSF leak -tolerated being OOB, dressing is dry and no headaches -PT/OT today. 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 NAD. Eating/drinking. Some urine retention Objective: AAO x 3, PERRLA/EOMI no droop CN 2-12 grossly intact +lt touch 5/5 BUE/BLE = CDI Neuro Check Frequency: per routine Urinary Catheter in Place: No Catheter Insertion Date: 05/15/17 - Physician Discussed Patient with .: Danny Patient Seen by : Danny Neurosurgery Physical Exam - Vitals, I&O, Labs I and O 05/19/17 05/20/17 05/21/17 05:59 05:59 05:59 Intake Total 2200 740 Output Total 1650 1974 200 Balance 550 -1235 -200 Intake: Oral (ml) 1300 740 IV Infused (ml) 900 Ns 1,000 ml @ 75 mls/hr 900 IV CONT GRICEL Rx#: [id number] Output: Urine (ml) 1650 1975 200 Catheter 1650 250 Toilet 1725 200 Other: Number of Voids Catheter 1 Toilet 1 1 Number of Stools Bedside Commode 1 Post Void Residual Scan Volume (ml) Toilet 316 Vital Signs Temp Pulse Resp BP Pulse Ox 37.0 C 85 15 168/81 H 96 05/19/17 23:40 05/19/17 23:40 05/19/17 23:40 05/19/17 23:40 05/19/17 23:40 Laboratory Results 05/16/17 04:33 06/17/17 10:07 ICD10 Worksheet Patient Problems: Problems Problem Status Onset Failed spinal cord stimulator Acute Lumbago Acute Lumbar stenosis Acute Neurogenic claudication Acute CAD (coronary artery disease) Acute Hyperlipemia Acute Ribs, multiple fractures Acute - ICD10 Problem Qualifiers (1) Lumbar stenosis (2) Lumbago Qualifiers: Chronicity: C Back pain laterality: B Sciatica presence: S Sciatica laterality: S (3) Failed spinal cord stimulator Qualifiers: Encounter type: E (4) Neurogenic claudication
[2017-05-20] MEDS: ENOXAPARIN 40 MG/0.4 ML SYR SC SCH (08:19)
[2017-05-20] MEDS: SODIUM CHLORIDE 1,000 MG TAB PO SCH ×3 (08:20→17:09)
[2017-05-20] MEDS: TAMSULOSIN HCL 0.4 MG CAP PO SCH (08:20)
[2017-05-20] MEDS: METOPROLOL SUCCINATE XR 25 MG TAB PO SCH (08:20)
[2017-05-20] MEDS: CITALOPRAM 20 MG TAB PO SCH (08:20)
[2017-05-20] MEDS: ARIPiprazole 5 MG TAB PO SCH (08:21)
[2017-05-20] MEDS: metFORMIN HCL 500 MG TAB PO SCH ×2 (08:21→17:09)
[2017-05-20] MEDS: morphINE SR 15 MG TAB PO SCH ×2 (08:22→20:08)
[2017-05-20] MEDS: FAMOTIDINE 20 MG TAB PO SCH (08:22)
[2017-05-20] MEDS: HYDROCHLOROTHIAZIDE 12.5 MG CAP PO SCH (08:22)
[2017-05-20] MEDS: TAPENTADOL HCL 100 MG PO SCH ×2 (08:32→23:21)
[2017-05-20] MEDS: SENNOSIDES/DOCUSATE SODIUM TAB PO SCH ×2 (08:32→20:08)
[2017-05-20 09:04] LABS: ANION GAP 8 mEq/L (8-16); CALCIUM 8.7 mg/dL (8.5-10.4); CARBON DIOXIDE 24 mEq/l (22-31); CHLORIDE 97 mEq/L (97-110); CREATININE 0.6 mg/dL (0.7-1.3); GLOMERULAR FILTRATION RATE > 60; GLUCOSE 117 mg/dL (70-100); POTASSIUM 3.1 mEq/L (3.5-5.2); SODIUM 129 mEq/L (134-144)
[2017-05-20] MEDS ORDERED: hydrALAZINE 20 MG/ML VIAL IVP PRN (10:12)
[2017-05-20] MEDS: oxyCODONE IR 5 MG TAB PO PRN ×2 (15:07→20:08)
[2017-05-20] MEDS: METHOCARBAMOL 750 MG TAB PO PRN (15:07)
[2017-05-20] MEDS: ROSUVASTATIN CALCIUM 10 MG TAB PO SCH (20:07)
[2017-05-20] MEDS: FINASTERIDE 5 MG TAB PO SCH (20:08)
[2017-05-20] MEDS: ZOLPIDEM TARTRATE 5 MG TAB PO SCH (20:09)
--- NOTE | 2017-05-21 06:42 | NEUSURGPN ---
Date of Surgery: 05/15/17 Post Op Day: 6 Assessment/Plan: Assessment: 81 yo male that is POD #6 s/p TLIF at L3/4 and L4/5 with removal of SCS with small dural bleb Plan: -s/p TLIF L3/4 and L4/5 with dural bleb-no CSF leak -tolerated being OOB, dressing is dry and no headaches -PT/OT today. He is walking more and more -pain minimal with oral meds -LSO brace when OOB -lumbar xrays look good-no issues -jeffery out-pt with some continued urine retention-Flomax added -hyponatremia- suspect mild SIADH, sodium 128 2 days ago, will restrict free water, continue salt tabs 6g daily, consider medicine consult if not improving -BMP ordered -on lovenox for dvt ppx -call with any questions or concerns -pt understands and agrees 05/15/17 14:22 Subjective: No new complaints or concerns. No mackey/neck/chest/abd or gu complaintsl Objective: AAO x 3, PERRLA/EOMI no droop CN 2-12 grossly intact +lt touch 5/5 BUE/BLE = CDI Neuro Check Frequency: per routine Urinary Catheter in Place: No Catheter Insertion Date: 05/15/17 - Physician Discussed Patient with .: Danny Patient Seen by : Danny Neurosurgery Physical Exam - Vitals, I&O, Labs I and O 05/20/17 05/21/17 05/22/17 05:59 05:59 05:59 Intake Total 740 Output Total 1974 1200 Balance -1235 -1200 Intake: Oral (ml) 740 Output: Urine (ml) 1974 1200 Catheter 250 Toilet 1725 1100 Urinal 100 Other: Number of Voids Toilet 1 3 Urinal 1 Number of Stools Toilet 1 Post Void Residual Scan Volume (ml) Toilet 316 Vital Signs Temp Pulse Resp BP Pulse Ox 37.2 C 88 16 153/70 H 92 05/20/17 23:26 05/20/17 23:26 05/20/17 23:26 05/20/17 23:26 05/20/17 23:26 Laboratory Results 05/16/17 04:33 05/20/17 08:18 ICD10 Worksheet Patient Problems: Problems Problem Status Onset Failed spinal cord stimulator Acute Lumbago Acute Lumbar stenosis Acute Neurogenic claudication Acute CAD (coronary artery disease) Acute Hyperlipemia Acute Ribs, multiple fractures Acute - ICD10 Problem Qualifiers (1) Lumbar stenosis (2) Lumbago Qualifiers: Chronicity: C Back pain laterality: B Sciatica presence: S Sciatica laterality: S (3) Failed spinal cord stimulator Qualifiers: Encounter type: E (4) Neurogenic claudication
[2017-05-21 08:01] LABS: ANION GAP 8 mEq/L (8-16); CALCIUM 8.1 mg/dL (8.5-10.4); CARBON DIOXIDE 25 mEq/l (22-31); CHLORIDE 96 mEq/L (97-110); CREATININE 0.6 mg/dL (0.7-1.3); GLOMERULAR FILTRATION RATE > 60; GLUCOSE 160 mg/dL (70-100); SODIUM 129 mEq/L (134-144)
[2017-05-21] MEDS: SODIUM CHLORIDE 1,000 MG TAB PO SCH ×3 (08:10→17:26)
[2017-05-21] MEDS: FAMOTIDINE 20 MG TAB PO SCH (08:11)
[2017-05-21] MEDS: SENNOSIDES/DOCUSATE SODIUM TAB PO SCH ×2 (08:11→20:13)
[2017-05-21] MEDS: CITALOPRAM 20 MG TAB PO SCH (08:12)
[2017-05-21] MEDS: METHOCARBAMOL 750 MG TAB PO PRN ×2 (08:12→20:14)
[2017-05-21] MEDS: TAMSULOSIN HCL 0.4 MG CAP PO SCH (08:12)
[2017-05-21] MEDS: HYDROCHLOROTHIAZIDE 12.5 MG CAP PO SCH (08:13)
[2017-05-21] MEDS: ARIPiprazole 5 MG TAB PO SCH (08:14)
[2017-05-21] MEDS: metFORMIN HCL 500 MG TAB PO SCH ×2 (08:14→17:26)
[2017-05-21] MEDS: morphINE SR 15 MG TAB PO SCH ×2 (08:15→20:15)
[2017-05-21] MEDS: METOPROLOL SUCCINATE XR 25 MG TAB PO SCH (08:15)
[2017-05-21 08:16] LABS: POTASSIUM 2.7 mEq/L (3.5-5.2)
[2017-05-21] MEDS: oxyCODONE IR 5 MG TAB PO PRN ×3 (08:16→17:25)
[2017-05-21] MEDS ORDERED: PROTOCOL POTASSIUM 1 DOSE MISC PRN (08:45)
[2017-05-21] MEDS ORDERED: POTASSIUM CL 10 MEQ TAB PO ONE ×2 (08:49→19:47)
[2017-05-21] MEDS: ENOXAPARIN 40 MG/0.4 ML SYR SC SCH (09:14)
[2017-05-21] MEDS: TAPENTADOL HCL 100 MG PO SCH ×2 (09:14→20:16)
[2017-05-21 14:46] LABS: POTASSIUM 3.4 mEq/L (3.5-5.2)
--- NOTE | 2017-05-21 15:07 | PDGENHP ---
History and Physical History and Physical: HISTORY AND PHYSICAL CC:MS by Dr. Nilson Delgado to assist in the care of this patient who has electrolyte abnormalities after surgery HISTORY: This patient admitted the hospital several days ago for elective spine surgery after failing conservative management of lumbar spine disease with ongoing axial spine pain. He had a successful and uncomplicated surgery and is now recovering reasonably well. He is eating, having bowel movements, ambulating in the hallway with a walker. He has no shortness of breath or chest pain despite his history of the coronary disease. He did have a recent unremarkable stress test.He is having no nausea or vomiting no fevers no cough no wound problems no leg swelling or pain. On blood testing the patient has had hyponatremia that is persistently and 128- 129 range over the last few days despite salt supplements and fluid restriction. This morning he had a new finding of low potassium after normal potassium levels. It was 2.7 this morning. He was given some salt supplements and is now back up greater than 3. He does not have muscle cramps or nausea. Do notice that he is taking hydrochlorothiazide here which is a home medicine that he has taken since 1998. I have looked back through his chart and he has not had significant issues with low potassium or sodium in the outpatient setting. Also it has not been and significant issue and previous hospital stays. ROS: A comprehensive 10 system review revealed no other significant findings PAST MEDICAL HISTORY: CAD, [place], CABG, STENT Intraoccular Hemorrhage while on plavix prostate cancer depression / anxiety osteoarthritis / TKA traumatic rib fractures small bowel obstruction FAMILY MEDICAL HISTORY: parents he recalls no specifici illness SOCIAL HISTORY: no tobacco or drugs MEDICATIONS: main medication of interest presently is chronic HCTZ which he is taking here PHYSICAL EXAMINATION: Vital Signs:stable with no fever Examination: General: alert, oriented, good mentation, relaxed Skin: warm, dry, good color, no rash HEENT: normal Neck: no mass or jvd Resps: relaxed Lungs: clear breath sounds Heart: regular, no murmur Abdomen: soft, nondistended, nontender, +BS, no mass Upper Extremities: normal Lower Extremities: no edema, warm No Bleeding or bruising Neurologic: normal speech/language, normal welt rougher, no focal weakness IV site: looks normal LABORATORY DATA: Na 128-129 past several days K initially normal was 2.7 this am, no > 3 after supplement by protocol ASSESSMENT: 1- Euvolemic hyponatremia, ? SIADH, diuretic effect 2- Hypokalemia - HCTZ is likely main cause PLANS: I have stopped HCTZ and would keep off that until he fully recovers from surg and then if restarting would follow electrolytes Would continue current fluid/Na treatments for low Na, but suspect those could be stopped soon off HCTZ Would continue K replacement as needed but off HCTZ also suspect this wont likely be ongoing issue I have reviewed the patient's case in detail with . I have reviewed the patient's past medical records as part of this assessment,
[2017-05-21 18:27] LABS: POTASSIUM 3.7 mEq/L (3.5-5.2)
[2017-05-21] MEDS: ROSUVASTATIN CALCIUM 10 MG TAB PO SCH (20:13)
[2017-05-21] MEDS: ZOLPIDEM TARTRATE 5 MG TAB PO SCH (20:15)
[2017-05-21] MEDS: FINASTERIDE 5 MG TAB PO SCH (20:15)
[2017-05-22] MEDS: ACETAMINOPHEN 325 MG TAB PO PRN (03:27)
[2017-05-22] MEDS: METHOCARBAMOL 750 MG TAB PO PRN ×2 (03:28→08:06)
[2017-05-22] MEDS: oxyCODONE IR 5 MG TAB PO PRN ×2 (03:28→08:04)
[2017-05-22 05:27] LABS: POTASSIUM 3.6 mEq/L (3.5-5.2)
[2017-05-22] MEDS ORDERED: POTASSIUM CL 10 MEQ TAB PO ONE (06:38)
--- NOTE | 2017-05-22 06:58 | NEUSURGPN ---
Date of Surgery: 05/15/17 Post Op Day: 7 Assessment/Plan: Assessment: 81 yo male that is POD #7 s/p TLIF at L3/4 and L4/5 with removal of SCS with small dural bleb Plan: -s/p TLIF L3/4 and L4/5 with dural bleb-no CSF leak -tolerated being OOB, dressing is dry and no headaches -PT/OT today. He is walking fine -pain minimal with oral meds-tolerating well -LSO brace when OOB -lumbar xrays look good-no issues -jeffery out-pt with some continued urine retention-Flomax added -hyponatremia- will restrict fluid intake, continue salt tabs 6g daily, IM saw for low K and low Na-better now -labs reviewed -on lovenox for dvt ppx -call with any questions or concerns -pt understands and agrees 05/15/17 14:22 Subjective: No new complaints or concerns. No mackey/neck/chest/abd or gu complaints. Pt states that back and legs feel good Objective: AAO x 3, PERRLA/EOMI no droop CN 2-12 grossly intact +lt touch 5/5 BUE/BLE = CDI Neuro Check Frequency: per routine Urinary Catheter in Place: No Catheter Insertion Date: 05/15/17 - Physician Discussed Patient with : Danny Patient Seen by : Danny Neurosurgery Physical Exam - Vitals, I&O, Labs I and O 05/21/17 05/22/17 05/23/17 05:59 05:59 05:59 Intake Total 600 Output Total 1200 1900 Balance -1200 -1300 Intake: Oral (ml) 600 Output: Urine (ml) 1200 1900 Toilet 1100 1600 Urinal 100 300 Other: Intake Quantity Yes Sufficient Number of Voids Toilet 3 1 Urinal 1 1 Number of Stools Toilet 1 1 Post Void Residual Scan Volume (ml) Toilet 316 Vital Signs Temp Pulse Resp BP Pulse Ox 36.6 C 83 16 190/81 H 92 05/21/17 23:47 05/21/17 23:47 05/21/17 23:47 05/21/17 23:47 05/21/17 23:47 Laboratory Results 05/16/17 04:33 05/22/17 04:31 ICD10 Worksheet Patient Problems: Problems Problem Status Onset Failed spinal cord stimulator Acute Lumbago Acute Lumbar stenosis Acute Neurogenic claudication Acute CAD (coronary artery disease) Acute Hyperlipemia Acute Ribs, multiple fractures Acute - ICD10 Problem Qualifiers (1) Lumbar stenosis (2) Lumbago Qualifiers: Chronicity: C Back pain laterality: B Sciatica presence: S Sciatica laterality: S (3) Failed spinal cord stimulator Qualifiers: Encounter type: E (4) Neurogenic claudication
[2017-05-22 07:12] VITALS: BP 156/81; PULSE 78; RESP 18; TEMP 98.5; O2SAT 91
--- NOTE | 2017-05-22 07:12 | PDIAF ---
- Diagnosis Diagnosis: s/p L spine fusion Code Status: Full Code - Medication Management Discharge Medications: Medications to Continue on Transfer ARIPiprazole [Abilify 5 mg (*)] 5 mg PO Q2D 02/15/16 [Last Taken 05/15/17 05:00] Finasteride [Proscar 5 MG (*)] 5 mg PO HS 02/15/16 [Last Taken 05/14/17] Eszopiclone [Lunesta] 2 mg PO HS #0 04/30/16 [Last Taken 05/14/17] Tapentadol HCl [Nucynta ER] 100 mg PO BID@08,20 #0 05/31/16 [Last Taken 05:00] Citalopram [CeleXA 20 MG] 50 mg PO DAILY 09/01/16 [Last Taken 05/15/17 05:00] Famotidine [Pepcid] 40 mg PO DAILY 09/01/16 [Last Taken 05/14/17] Metoprolol Succinate Xr [Toprol Xl 25 mg (*)] 25 mg PO DAILY 09/01/16 [Last Taken 05/15/17 05:00] Rivaroxaban [Xarelto] 20 mg PO HS 09/01/16 [Last Taken 05/11/17] Rosuvastatin Calcium [Crestor] 10 mg PO HS 09/01/16 [Last Taken 05/14/17] metFORMIN HCL [Glucophage 500 mg (*)] 500 mg PO BIDMEAL 09/02/16 [Last Taken 09/17] Cholecalciferol Vit D3 [Vitamin D3 2000 units tab (OTC)] 2,000 units PO DAILY [Last Taken Unknown] Herbals/Supplements -Info Only 1 ea PO DAILY 04/19/17 [Last Taken 05/08/17] Sildenafil Citrate [Viagra 50 MG (*)] 50 mg PO DAILY PRN 04/19/17 [Last Taken Unknown] Acetaminophen [Tylenol 325mg (*)] 325 - 650 mg PO Q4HRS PRN #0 tab 05/22/17 [ Last Taken Unknown] Methocarbamol [Robaxin 750 mg (*)] 750 mg PO QID PRN #60 tab 05/22/17 [Last Taken Unknown] Sennosides/Docusate Sodium [Senokot-S] 1 - 2 tab PO BID #30 tab 05/22/17 [Last Taken Unknown] Sodium Chloride [Salt Tablet] 2,000 mg PO TIDMEAL #20 tab 05/22/17 [Last Taken Unknown] Tamsulosin HCl [Flomax 0.4 MG (*)] 0.4 mg PO DAILY #7 cap 05/22/17 [Last Taken Unknown] morphINE SR [Ms Contin/Oramorph 15 mg (*)] 15 mg PO BID #20 tab 05/22/17 [Last Taken Unknown] oxyCODONE IR [Oxycodone Ir (*)] 5 - 10 mg PO Q4H PRN #90 tab 05/22/17 [Last Taken Unknown] Usp Antibiotics: none Discharge Medications: Refer to the Discharge Home Medication list for PRN reason. PICC Care - Routine: N/A - Orders Services needed: Registered Nurse, Certified Feeder Operator, Master Firewood Cutter , Physical Therapy, Occupational Therapy Oxygen: to keep O2 sat above 90% Diet Recommendation: no restrictions on diet, fluid restriction (use comment for amount) (less than 1500 for 3 days then recheck labs with PCP) Diet Texture: Regular Texture Diet Tube feeding: none Morris: Not applicable - Labs/Radiology BMP Date: 05/24/17 (report to Dr Augustin) - Follow Up Care Current Providers and Referrals: Demarco Longoria MD [Primary Care Provider] - (recheck in 2-3 days ) Nicole Delgado MD [Medical Doctor] - (follow up in 2-3 weeks)
[2017-05-22] MEDS: METOPROLOL SUCCINATE XR 25 MG TAB PO SCH (08:03)
[2017-05-22] MEDS: SENNOSIDES/DOCUSATE SODIUM TAB PO SCH (08:04)
[2017-05-22] MEDS: morphINE SR 15 MG TAB PO SCH (08:05)
[2017-05-22] MEDS: FAMOTIDINE 20 MG TAB PO SCH (08:05)
[2017-05-22] MEDS: ENOXAPARIN 40 MG/0.4 ML SYR SC SCH (08:05)
[2017-05-22] MEDS: metFORMIN HCL 500 MG TAB PO SCH (08:06)
[2017-05-22] MEDS: CITALOPRAM 20 MG TAB PO SCH (08:07)
[2017-05-22] MEDS: SODIUM CHLORIDE 1,000 MG TAB PO SCH (08:07)
[2017-05-22] MEDS: TAMSULOSIN HCL 0.4 MG CAP PO SCH (08:09)
[2017-05-22] MEDS: TAPENTADOL HCL 100 MG PO SCH (09:09)
== END 2017-05-22 10:57 | DRG 460 ==
LOC: F3N 05:50
PROVIDERS: ADMIT Neurological Surgery; ATTEND Neurological Surgery
DX: M43.16 Spondylolisthesis, lumbar region (principal); M51.36 Other intervertebral disc degeneration, lumbar region; M48.06 Spinal stenosis, lumbar region; G97.41 Accidental puncture or laceration of dura during a procedure; E87.1 Hypo-osmolality and hyponatremia; E87.6 Hypokalemia; E11.9 Type 2 diabetes mellitus without complications; K21.9 Gastro-esophageal reflux disease without esophagitis; Z95.1 Presence of aortocoronary bypass graft; Z95.5 Presence of coronary angioplasty implant and graft
CPT/HCPCS: 97110-GP; 97116-GP; 97162-GP; 97166-GO; 97535-GO; C1713; G8978-GP-CI; G8978-GP-CK; G8979-GP-CI; G8987-GO-CL; G8988-GO-CI; J0360; J0690; J0697; J1170; J1650; J2001; J2250; J2370; J2405; J2704; J3010

== ENCOUNTER 2017-05-29 09:47 | Inpatient (IN) | payer OTHER ==
--- NOTE | 2017-05-29 10:07 | EDPHY ---
H & P Time Seen by Provider: 05/29/17 09:58 HPI/ROS: CHIEF COMPLAINT: Left knee pain and swelling. HISTORY OF PRESENT ILLNESS: The patient is a 81-year-old male s/p L3-4, L4-5 arthrodesis on 05/15/17, who presents with acute left knee pain and swelling. Patient has not had any complications since surgery. However, over the past few days he developed pain and swelling to his left knee. The patient states his knee has intermittently swelled in the past, but is not usually this severe. He denies recent injury to the knee. Patient is unable to ambulate secondary to the pain. Patient additionally notes he is more confused than usual. Associated with urinary urgency and incontinence. No fever. He has been residing at [facility] since surgery. REVIEW OF SYSTEMS: A comprehensive 10 point review of systems is otherwise negative aside from elements mentioned in the history of present illness. Past Medical/Surgical History: CAD, [place] with stent, SBO, Intraocular hemorrhage while on plavix, Prostate cancer , Depression, Anxiety, Osteoarthritis PSH: Right knee replacement, L3-4, L4-5 Arthrodesis Social History: Resides at [facility]. Smoking Status: Never smoked Physical Exam: General Appearance: Alert, slightly confused Eyes: Pupils equal and round, no conjunctival pallor or injection ENT, Mouth: Mucous membranes moist Neck: Normal inspection Respiratory: Lungs are clear anteriorly Cardiovascular: Regular rate and rhythm, 2/6 systolic murmur Gastrointestinal: Abdomen is soft and non-tender Neurological: A&O, nonfocal Skin: Warm and dry, no rash Extremities: Left knee: moderate left knee effusion, no overlying erythema, warmth, or tenderness Psychiatric: Mood and affect normal Constitutional: Initial Vital Signs Temperature (C) 36.8 C 05/29/17 09:51 Heart Rate 95 05/29/17 09:51 Respiratory Rate 14 05/29/17 09:51 Blood Pressure 161/83 H 05/29/17 09:51 O2 Sat (%) 93 05/29/17 09:51 O2 Delivery Mode Room Air Allergies/Adverse Reactions: tetracycline [Tetracycline] Allergy (Severe, Verified 04/23/17 15:37) Other-Enter Comments Home Medications: Medication Instructions Recorded ARIPiprazole [Abilify 5 mg (*)] 5 mg PO Q2D 05/29/17 Acetaminophen [Tylenol 325mg (*)] 650 mg PO Q4 PRN 05/29/17 Atorvastatin Calcium [Lipitor 20 20 mg PO HS 05/29/17 mg (*)] Cholecalciferol Vit D3 [Vitamin D3 2,000 units PO DAILY 05/29/17 (*)] Citalopram Hydrobromide [celeXA 10 50 mg PO DAILY 05/29/17 MG] Eszopiclone [Lunesta] 2 mg PO HS 05/29/17 Famotidine [Pepcid] 40 mg PO DAILY 05/29/17 Finasteride [Proscar 5 MG (*)] 5 mg PO HS 05/29/17 Hydrocortisone 1% [Hydrocortisone 1 coty TP BID PRN 05/29/17 1% cream (*)] Methocarbamol [Robaxin 750 mg (*)] 750 mg PO Q6H PRN 05/29/17 Metoprolol Succinate Xr [Toprol Xl 25 mg PO DAILY 05/29/17 25 mg (*)] Morphine Sulfate [Ms Contin] 15 mg PO BID 05/29/17 Ondansetron HCl [Zofran] 4 mg PO Q6H PRN 05/29/17 Rivaroxaban [Xarelto] 20 mg PO HS 05/29/17 Sennosides/Docusate Sodium 1 each PO BID 05/29/17 [Senna-S Tablet] Sodium Chloride [Salt Tablet] 2 gm PO TID 05/29/17 Tamsulosin HCl [Flomax 0.4 MG (*)] 0.4 mg PO DAILY 05/29/17 Tapentadol HCl [Nucynta ER] 100 mg PO BID 05/29/17 metFORMIN HCL [Metformin HCl] 500 mg PO BID 05/29/17 oxyCODONE IR [Oxycodone Ir (*)] 5 - 10 mg PO Q4H PRN 05/29/17 Medical Decision Making - Diagnostics Imaging: I viewed and interpreted images myself Procedures: Procedure: Arthrocentesis. Indication: Evaluation for the possibility of septic joint. Risks, benefits, alternatives of the procedure were discussed with the patient and consent obtained. The patient was prepped and draped in the usual sterile fashion over the joint. Local anesthesia was provided with 1% lidocaine. The joint space was entered with a gauge needle and 40 cc of clear fluid was obtained. There were no complications. The procedure was performed by myself. ED Course/Re-evaluation: Patient presents with acute left knee pain and swelling. No recent injury. Patient feels more confused than usual. He has a history of hyponatremia and stopped HCTZ after surgery. Plan to check lab work and knee x-ray. I viewed the patient's knee x-ray on the PACS system and discussed findings with the radiologist. X-ray shows large joint effusion. Plan for arthrocentesis. Lab work is pending. Patient is hyponatremic at 128. WBC slightly elevated at 12. Potassium today is normal. We attempted to ambulate the patient, but he was unable to ambulate due to pain in his left knee. 12:30 p.m.: I spoke to the hospitalist team, the patient will be admitted to Dr. Mack. Joint effusion found to be pseudogout. No joint infection. Pt unable to provide a urine sample during his ED stay. Concern for UTI given urinary urgency and incontinence. Gabriel Brar saw the pt in the ED. Neurosurgery will consult on the patient during his hospitalization. Differential Diagnosis: Altered mental status including but not limited to joint infection, severe hyponatremia, hypoglycemia, infectious process, electrolyte abnormality, head injury and intoxicants. - Data Points Laboratory Results: Laboratory Results 05/29/17 10:35 05/29/17 10:35 Microbiology Results: MICROBIOLOGY 05/29/17 11:00 Knee - Aspirate Gram Stain - Final 05/29/17 11:00 Knee - Aspirate Anaerobic Culture - Preliminary Medications Given: Discontinued Medications Potassium Chloride/Sodium Chloride (Ns W/ 20 Kcl/L) 1,000 mls @ 75 mls/hr IV CONT GRICEL Stop: 05/30/17 06:04 Last Admin: 05/29/17 16:59 Dose: 1,000 mls Departure - Departure Disposition: [facility] Inpatient Acute Clinical Impression: Effusion, left knee, Hyponatremia, Pseudogout of left knee Condition: Fair Report Scribed for: Cynthia Thompson Report Scribed by: Kathie Dennis Date of Report: 05/29/17 Time of Report: 10:15 Physician Review and Approval Statement: 05/29/17 10:15 Portions of this note were transcribed by a medical referral coordinator. I personally performed the history, physical exam, and medical decision-making; and confirmed the accuracy of the information in the transcribed note.
[2017-05-29 10:53] LABS: % IMMATURE GRANULYOCYTES 1.4 % (0.0-1.1); ABSOLUTE IMMATURE GRANULOCYTES 0.18 10^3/uL (0.00-0.10); ADD DIFF? NO; ADD MORPH? NO; ADD SCAN? NO; ATYPICAL LYMPHOCYTE FLAG 10 (0-99); FRAGMENT RBC FLAG 0 (0-99); HEMATOCRIT 42.9 % (40.0-51.0); HEMOGLOBIN 14.8 g/dL (13.7-17.5); LEFT SHIFT FLG 10 (0-99); LIPEMIA HEMOLYSIS FLAG 90 (0-99); MEAN CELL HEMOGLOBIN 29.9 pg (27.9-34.1); MEAN CELL HEMOGLOBIN CONCENTR. 34.5 g/dL (32.4-36.7); MEAN CELL VOLUME 86.7 fL (81.5-99.8); MEAN PLATELET VOLUME 8.7 fL (8.7-11.7); PLATELET CLUMPS FLAG 0 (0-99); PLATELET COUNT 299 10^3/uL (150-400); RED BLOOD CELL COUNT 4.95 10^6/uL (4.40-6.38)
[2017-05-29 11:02] LABS: ANION GAP 11 mEq/L (8-16); CALCIUM 9.2 mg/dL (8.5-10.4); CARBON DIOXIDE 22 mEq/l (22-31); CHLORIDE 95 mEq/L (97-110); CREATININE 0.7 mg/dL (0.7-1.3); GLOMERULAR FILTRATION RATE > 60; GLUCOSE 112 mg/dL (70-100); POTASSIUM 3.9 mEq/L (3.5-5.2); SODIUM 128 mEq/L (134-144)
[2017-05-29 12:07] LABS: WBC, SYNOVIAL FLUID 4080 /mm3 (0-150)
[2017-05-29] MEDS ORDERED: D50W 25 GM/50 ML SYR IVP PRN (16:37)
--- NOTE | 2017-05-29 16:37 | SOAPPROG ---
SOAP Progress Note Assessment/Plan: Assessment: Patient was seen and examined. Franny with note of same date by Tyrel JIMENEZ 05/29/17 16:37 Objective: Vital Signs Temp Pulse Resp BP Pulse Ox 36.7 C 87 18 119/66 100 05/29/17 15:05 05/29/17 15:05 05/29/17 15:05 05/29/17 15:05 05/29/17 15:05 ICD10 Worksheet Patient Problems: Problems Problem Status Onset Effusion, left knee Acute Hyponatremia Acute Pseudogout of left knee Acute CAD (coronary artery disease) Acute Failed spinal cord stimulator Acute Hyperlipemia Acute Lumbago Acute Lumbar stenosis Acute Neurogenic claudication Acute Ribs, multiple fractures Acute
[2017-05-29] MEDS ORDERED: ONDANSETRON DISINTEGRATING 4 MG TAB PO PRN (16:38)
[2017-05-29] MEDS ORDERED: ONDANSETRON 4 MG/2 ML VIAL IVP PRN (16:38)
[2017-05-29] MEDS ORDERED: NS W/ 20 KCl/L 1,000 ML IV SCH (16:45)
--- NOTE | 2017-05-29 16:56 | PDGENHP ---
History and Physical - Chief Complaint Left knee pain, confusion - History of Present Illness The patient is a 81-year-old male s/p L3-4, L4-5 arthrodesis on 05/15/17, who was seen at his post op care visit today and sent to the ED due to acute left knee pain and swelling, confusion, and reported UTI. He was evaluated in the ED and noted to have a Na of 128. Urinalysis was ordered but not obtained. No IVF were provided. He did not receive steroids or abx. An arthrocentesis was obtained and is c/w Synovial WBC of 4080 and reportedly Pseudogout. Unfortunately, the patient is currently confused and while I am able to obtain some history, I have used the medical record for reference. He does not have a family member present. He says he developed pain 2 days ago and this initially became worse but has been stable for about a day. He is not able to walk, however. He has been residing at [facility] since surgery. He reports burning when he urinates, but cannot provide further history. Per the medical records, he had a positive UA today while at his surgical appt. Denies Fever, N/V, CP, Cough, SOB, or other PMHx:CAD, [place] with stent, SBO, Intraocular hemorrhage while on plavix, Prostate cancer, Depression, Anxiety, Osteoarthritis, Chronic pain syndrome PSH: Right knee replacement, L3-4, L4-5 Arthrodesis Soc Hx: residing at [facility] FmHx: reviewed History Information - Allergies/Home Medication List Allergies/Adverse Reactions: tetracycline [Tetracycline] Allergy (Severe, Verified 04/23/17 15:37) Other-Enter Comments Home Medications: ARIPiprazole [Abilify 5 mg (*)] 5 mg PO Q2D 05/29/17 [Last Taken Unknown] Acetaminophen [Tylenol 325mg (*)] 650 mg PO Q4 PRN 05/29/17 [Last Taken Unknown] Atorvastatin Calcium [Lipitor 20 mg (*)] 20 mg PO HS 05/29/17 [Last Taken Unknown] Cholecalciferol Vit D3 [Vitamin D3 (*)] 2,000 units PO DAILY 05/29/17 [Last Taken Unknown] Citalopram Hydrobromide [celeXA 10 MG] 50 mg PO DAILY 05/29/17 [Last Taken Unknown] Eszopiclone [Lunesta] 2 mg PO HS 05/29/17 [Last Taken Unknown] Famotidine [Pepcid] 40 mg PO DAILY 05/29/17 [Last Taken Unknown] Finasteride [Proscar 5 MG (*)] 5 mg PO HS 05/29/17 [Last Taken Unknown] Hydrocortisone 1% [Hydrocortisone 1% cream (*)] 1 coty TP BID PRN 05/29/17 [Last Taken Unknown] Methocarbamol [Robaxin 750 mg (*)] 750 mg PO Q6H PRN 05/29/17 [Last Taken Unknown] Metoprolol Succinate Xr [Toprol Xl 25 mg (*)] 25 mg PO DAILY 05/29/17 [Last Taken Unknown] Morphine Sulfate [Ms Contin] 15 mg PO BID 05/29/17 [Last Taken Unknown] Ondansetron HCl [Zofran] 4 mg PO Q6H PRN 05/29/17 [Last Taken Unknown] Rivaroxaban [Xarelto] 20 mg PO HS 05/29/17 [Last Taken Unknown] Sennosides/Docusate Sodium [Senna-S Tablet] 1 each PO BID 05/29/17 [Last Taken Unknown] Sodium Chloride [Salt Tablet] 2 gm PO TID 05/29/17 [Last Taken Unknown] Tamsulosin HCl [Flomax 0.4 MG (*)] 0.4 mg PO DAILY 05/29/17 [Last Taken Unknown] Tapentadol HCl [Nucynta ER] 100 mg PO BID 05/29/17 [Last Taken Unknown] metFORMIN HCL [Metformin HCl] 500 mg PO BID 05/29/17 [Last Taken Unknown] oxyCODONE IR [Oxycodone Ir (*)] 5 - 10 mg PO Q4H PRN 05/29/17 [Last Taken Unknown] I have personally reviewed and updated: medical history, social history - Social History Smoking Status: Never smoked Review of Systems ROS: 10pt was reviewed & negative except for what was stated in HPI & below Physical Exam Temp Pulse Resp BP Pulse Ox 36.7 C 87 18 119/66 100 05/29/17 15:05 05/29/17 15:05 05/29/17 15:05 05/29/17 15:05 05/29/17 15:05 Constitutional: no apparent distress, chronically ill appearing Eyes: PERRL, EOMI Ears, Nose, Mouth, Throat: dry mucous membranes Cardiovascular: regular rate and rhythym, systolic murmur Respiratory: no respiratory distress, no rales or rhonchi, clear to auscultation Gastrointestinal: normoactive bowel sounds, soft, non-tender abdomen Skin: warm Musculoskeletal: other (Left knee: moderate left knee effusion, no overlying erythema, warmth, or tenderness) Neurologic: No facial droop Psychiatric: encephalopathic, poor insight, poor judgement, poor memory Lab Data & Imaging Review 05/29/17 10:35 05/29/17 10:35 WBC 12.62 10^3/uL (3.80-9.50) H 05/29/17 10:35 RBC 4.95 10^6/uL (4.40-6.38) 05/29/17 10:35 Hgb 14.8 g/dL (13.7-17.5) 05/29/17 10:35 Hct 42.9 % (40.0-51.0) 05/29/17 10:35 MCV 86.7 fL (81.5-99.8) 05/29/17 10:35 MCH 29.9 pg (27.9-34.1) 05/29/17 10:35 MCHC 34.5 g/dL (32.4-36.7) 05/29/17 10:35 RDW 14.0 % (11.5-15.2) 05/29/17 10:35 Plt Count 299 10^3/uL (150-400) 05/29/17 10:35 MPV 8.7 fL (8.7-11.7) 05/29/17 10:35 Neut % (Auto) 80.7 % (39.3-74.2) H 05/29/17 10:35 Lymph % (Auto) 7.4 % (15.0-45.0) L 05/29/17 10:35 Dawson % (Auto) 10.1 % (4.5-13.0) 05/29/17 10:35 Eos % (Auto) 0.2 % (0.6-7.6) L 05/29/17 10:35 Baso % (Auto) 0.2 % (0.3-1.7) L 05/29/17 10:35 Nucleat RBC Rel Count 0.0 % (0.0-0.2) 05/29/17 10:35 Absolute Neuts (auto) 10.20 10^3/uL (1.70-6.50) H 05/29/17 10:35 Absolute Lymphs (auto) 0.93 10^3/uL (1.00-3.00) L 05/29/17 10:35 Absolute Monos (auto) 1.27 10^3/uL (0.30-0.80) H 05/29/17 10:35 Absolute Eos (auto) 0.02 10^3/uL (0.03-0.40) L 05/29/17 10:35 Absolute Basos (auto) 0.02 10^3/uL (0.02-0.10) 05/29/17 10:35 Absolute Nucleated RBC 0.00 10^3/uL (0-0.01) 05/29/17 10:35 Immature Gran % 1.4 % (0.0-1.1) H 05/29/17 10:35 Immature Gran # 0.18 10^3/uL (0.00-0.10) H 05/29/17 10:35 Sodium 128 mEq/L (134-144) L 05/29/17 10:35 Potassium 3.9 mEq/L (3.5-5.2) 05/29/17 10:35 Chloride 95 mEq/L (97-110) L 05/29/17 10:35 Carbon Dioxide 22 mEq/l (22-31) 05/29/17 10:35 Anion Gap 11 mEq/L (8-16) 05/29/17 10:35 BUN 15 mg/dL (7-23) 05/29/17 10:35 Creatinine 0.7 mg/dL (0.7-1.3) 05/29/17 10:35 Estimated GFR > 60 05/29/17 10:35 Glucose 112 mg/dL (70-100) H 05/29/17 10:35 Calcium 9.2 mg/dL (8.5-10.4) 05/29/17 10:35 Synovial Source SYNOVIAL 05/29/17 11:00 Synovial Color YELLOW (CLS/PALE YL) H 05/29/17 11:00 Synovial Appearance CLOUDY (CLEAR) H 05/29/17 11:00 Synovial WBC 4080 /mm3 (0-150) H 05/29/17 11:00 Synovial RBC 0 /mm3 (0-0) 05/29/17 11:00 Synovial Neutrophils 97 % (0-25) H 05/29/17 11:00 Synovial Lymphocytes 1 % 05/29/17 11:00 Synov Monos/Macrophage 2 % 05/29/17 11:00 Assessment & Plan Assessment: #Left knee Effusion reported crystals c/w pseudogout and borderline elevated WBC on Synovial fluid #Hyponatremia, acute on chronic #Leukocytosis #Dehydration #Encephalopathy #Likely UTI: #Recent Spinal surgery #Chronic Pain Syndrome #AC: On Xarelto #DMII, non insulin dependant diabetes Plan: -Admit -Given the Leukocytosis, confusion, and reported UA c/w UTI at his f/u appt, I will treat with Rocephin -His left knee is likely c/w pseudogout given the reported synovial fluid analysis and the low synovial WBC. Will treat with Prednisone and determine response -He appears dehydrated and has been limiting his oral intake due to fluid restrictions. He will get one liter NS and determine response -Urine studies will be obtained to allow for further analysis of Hyponatremia which has previously been attributed to Euvolemic Hyponatremia and possible SiADH. For now I will not cont his fluid restriction given the dehydration. I will cont the salt supplementation -Compliance may be an issue as reportedly he was not taken the AC that was prescribed to him. He is not a good historian -Cont with AC as was prescribed. NS will follow and can adjust if needed -PT/OT -Hold Metformin, cover with ISS -Limit use of centrally acting meds such as benzos', opiates, and muscle relaxants. Will allow for some PRN's -Presumed full code.
[2017-05-29] MEDS: predniSONE 20 MG TAB PO SCH (17:12)
[2017-05-29] MEDS: INSULIN LISPRO 100 UNIT/ML SC SCH (17:18)
[2017-05-29] MEDS: RIVAROXABAN 20 MG TAB PO SCH (19:52)
[2017-05-29] MEDS: SENNOSIDES/DOCUSATE SODIUM TAB PO SCH (19:52)
[2017-05-29] MEDS: ATORVASTATIN CALCIUM 20 MG TAB PO SCH (19:52)
[2017-05-29] MEDS: FINASTERIDE 5 MG TAB PO SCH (19:52)
[2017-05-29] MEDS ORDERED: ACETAMINOPHEN 325 MG TAB PO PRN (22:10)
[2017-05-29] MEDS: SODIUM CHLORIDE 1,000 MG TAB PO SCH (22:27)
[2017-05-29] MEDS: ZOLPIDEM TARTRATE 5 MG TAB PO SCH (22:27)
[2017-05-29] MEDS: ACETAMINOPHEN 325 MG TAB PO PRN (22:32)
[2017-05-29 22:42] LABS: COLOR YELLOW; LEUKOCYTE ESTERASE,URINE NEGATIVE (NEGATIVE); NITRITE,URINE NEGATIVE (NEGATIVE)
--- NOTE | 2017-05-29 23:47 | GCON ---
[f rep st] CONSULTATION BRIEF COURTESY DISCUSSION COURTESY VISIT/DISCUSSION: The patient is a 81-year-old male, who is status post L3-4, L4-5 fusion, that was done on 05/15/2017 at [facility] with Dr. Delgado. He came into our office today, and saw me at a two-week postop visit. He was somewhat confused. He had significant swelli ng in his left knee, and he has not been restarted, as previously recommended to his care providers, on Xarelto. He denies any chest pain or shortness of breath. Due to the fact that he likely neede d an ultrasound of his left leg, and likely needed his knee tapped for evaluation, and he needed blo od work, I felt that this could be done the quickest through the emergency department. He was sent to the emergency department today, and was seen by Dr. Thompson. He had a tap of his left knee, which s howed pseudogout. He had an ultrasound, which was done as well. He did continue to have a low pota ssium and low sodium, and Medicine was consulted for admission of the patient. PHYSICAL EXAMINATION: His incisions are clean, dry, and intact. He has 2 anterior incisions, one o n the right lower abdomen, one in his right flank, this was where the spinal cord stimulator he had prior to surgery was removed. He had a midline incision on his lumbar spine, which was evaluated, a nd no signs of infection noted, as well. ASSESSMENT AND PLAN: We will defer to Dr. Thompson and her expertise, as well as the admitting hospital ist for his further hospital care to evaluate his medical conditions. We will continue to follow ivelisse henderson on a daily basis. There is an office note compiled in conjunction with this. /[id number]/MODL
[2017-05-30 04:58] LABS: % IMMATURE GRANULYOCYTES 0.6 % (0.0-1.1); ABSOLUTE IMMATURE GRANULOCYTES 0.06 10^3/uL (0.00-0.10); ADD DIFF? NO; ADD MORPH? NO; ADD SCAN? NO; ATYPICAL LYMPHOCYTE FLAG 0 (0-99); FRAGMENT RBC FLAG 0 (0-99); HEMATOCRIT 40.5 % (40.0-51.0); HEMOGLOBIN 14.1 g/dL (13.7-17.5); LEFT SHIFT FLG 0 (0-99); LIPEMIA HEMOLYSIS FLAG 90 (0-99); MEAN CELL HEMOGLOBIN CONCENTR. 34.8 g/dL (32.4-36.7); MEAN CELL VOLUME 86.2 fL (81.5-99.8); PLATELET CLUMPS FLAG 0 (0-99); PLATELET COUNT 335 10^3/uL (150-400); RED CELL DISTRIBUTION WIDTH 13.9 % (11.5-15.2)
[2017-05-30 05:15] LABS: ANION GAP 13 mEq/L (8-16); CALCIUM 9.2 mg/dL (8.5-10.4); CARBON DIOXIDE 19 mEq/l (22-31); CHLORIDE 100 mEq/L (97-110); CREATININE 0.7 mg/dL (0.7-1.3); GLOMERULAR FILTRATION RATE > 60; GLUCOSE 130 mg/dL (70-100); POTASSIUM 4.2 mEq/L (3.5-5.2); SODIUM 132 mEq/L (134-144)
[2017-05-30] MEDS: SENNOSIDES/DOCUSATE SODIUM TAB PO SCH ×2 (07:32→19:21)
[2017-05-30] MEDS: SODIUM CHLORIDE 1,000 MG TAB PO SCH ×3 (07:44→20:34)
[2017-05-30] MEDS: CITALOPRAM 20 MG TAB PO SCH (07:45)
[2017-05-30] MEDS: METOPROLOL SUCCINATE XR 25 MG TAB PO SCH (07:45)
[2017-05-30] MEDS: predniSONE 20 MG TAB PO SCH (07:46)
[2017-05-30] MEDS: FAMOTIDINE 20 MG TAB PO SCH (07:46)
[2017-05-30] MEDS: TAMSULOSIN HCL 0.4 MG CAP PO SCH ×2 (07:46→08:49)
[2017-05-30] MEDS: CHOLECALCIFEROL VIT D3 2,000 UNITS TAB/CAP PO SCH (07:48)
[2017-05-30] MEDS: INSULIN LISPRO 100 UNIT/ML SC SCH ×3 (07:48→17:23)
--- NOTE | 2017-05-30 07:50 | NEUSURGPN ---
Assessment/Plan: Assessment: 81 yo male that is s/p L3/4 and L4/[address] Delgado admitted to IM with confusion/UTI sxs/left knee swelling and low Na Plan: -pt much better this am with change in pain medications -left knee shows pseudogout -pain minimal -PT/OT ordered -incisions look good-no issues -back and legs good except for left knee pain -call NS with any changes or issues -pt understands and agrees Subjective: Awake and alert. NAD. Eating/drinking and voiding. No f/c/n/v/d. Much better this am Objective: AAO x 3, PERRLA/EOMI no droop CN 2-12 grossly intact +lt touch 5/5 BUE/BLE = except limited with KE/KF due to left knee pain CDI x 3 Neuro Check Frequency: per routine Urinary Catheter in Place: No - Physician Discussed Patient with : Danny Neurosurgery Physical Exam - Vitals, I&O, Labs I and O 05/29/17 05/30/17 05/31/17 05:59 05:59 05:59 Intake Total 1100 Output Total 675 250 Balance 425 -250 Weight 97.522 kg Intake: Oral (ml) 200 IV Infused (ml) 900 NS W/ 20 KCl/L 1,000 ml @ 900 75 mls/hr IV CONT GRICEL Rx #:[id number] Output: Urine (ml) 675 250 Bedside Commode 250 Urinal 675 Other: Intake Quantity Yes Sufficient Number of Voids Urinal 1 Number of Stools Bedside Commode 1 Vital Signs Temp Pulse Resp BP Pulse Ox 36.7 C 104 H 16 174/79 H 96 05/30/17 07:23 05/30/17 07:45 05/30/17 07:23 05/30/17 07:45 05/30/17 07:23 Laboratory Results 05/30/17 04:16 05/30/17 04:16 ICD10 Worksheet Patient Problems: Problems Problem Status Onset Effusion, left knee Acute Hyponatremia Acute Pseudogout of left knee Acute CAD (coronary artery disease) Acute Failed spinal cord stimulator Acute Hyperlipemia Acute Lumbago Acute Lumbar stenosis Acute Neurogenic claudication Acute Ribs, multiple fractures Acute
[2017-05-30] MEDS: ACETAMINOPHEN 325 MG TAB PO PRN ×3 (08:54→20:33)
[2017-05-30 10:40] LABS: HEMOGLOBIN A1C 5.6 % (4.0-6.0)
[2017-05-30] MEDS: oxyCODONE IR 5 MG TAB PO PRN ×2 (11:03→20:33)
--- NOTE | 2017-05-30 15:53 | HOSPPROG ---
Hospitalist Progress Note Assessment/Plan: #Left knee Effusion, Pseudogout. Improved significantly #Hyponatremia, acute on chronic. 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 Improved with IVF #Leukocytosis, resolved #Dehydration, resolved #Encephalopathy, resolved #Likely UTI per sx's of dysuria. UA at [facility] obtained after abx. #Recent Spinal surgery #Chronic Pain Syndrome #AC: On Xarelto #DMII, non insulin dependant diabetes Plan: Better overall Cont Rocephin, would treat abx duration of 7 days. Can switch to an oral agent soon Cont Prednisone. Treat with taper at day #3 Recheck Na tomorrow. For now I have lifted the fluid restrictions. Continue with Salt tablets Compliance may be an issue as reportedly he was not taken the AC that was prescribed to him. He is not a good historian Cont with AC as was prescribed. NS will follow and can adjust if needed PT/OT Hold Metformin, cover with ISS Cont to hold long acting pain meds. He does not complain of pain today Subjective: Doing better. No CP or SOB. Confusion has resoved. Objective: Vital Signs Temp Pulse Resp BP Pulse Ox 36.8 C 90 16 154/81 H 96 05/30/17 15:43 05/30/17 15:43 05/30/17 15:43 05/30/17 15:43 05/30/17 15:43 Laboratory Results 05/30/17 04:16 05/30/17 04:16 05/29/17 05/30/17 05/31/17 05:59 05:59 05:59 Intake Total 1100 Output Total 675 450 Balance 425 -450 - Physical Exam Constitutional: no apparent distress, appears nourished, not in pain Eyes: PERRL, EOMI Ears, Nose, Mouth, Throat: moist mucous membranes, hearing normal, ears appear normal, no oral mucosal ulcers Cardiovascular: regular rate and rhythym, systolic murmur Respiratory: no respiratory distress Gastrointestinal: normoactive bowel sounds, soft, non-tender abdomen Skin: warm Neurologic: AAOx3 Psychiatric: interacting appropriately, not anxious, not encephalopathic ICD10 Worksheet Patient Problems: Problems Problem Status Onset Effusion, left knee Acute Hyponatremia Acute Pseudogout of left knee Acute CAD (coronary artery disease) Acute Failed spinal cord stimulator Acute Hyperlipemia Acute Lumbago Acute Lumbar stenosis Acute Neurogenic claudication Acute Ribs, multiple fractures Acute
[2017-05-30] MEDS: FINASTERIDE 5 MG TAB PO SCH (20:34)
[2017-05-30] MEDS: RIVAROXABAN 20 MG TAB PO SCH (20:34)
[2017-05-30] MEDS: ZOLPIDEM TARTRATE 5 MG TAB PO SCH (20:34)
[2017-05-30] MEDS: ATORVASTATIN CALCIUM 20 MG TAB PO SCH (20:34)
[2017-05-30] MEDS ORDERED: FAMOTIDINE 20 MG TAB PO ONE (21:15)
[2017-05-31] MEDS: hydrALAZINE 20 MG/ML VIAL IVP PRN ×2 (00:01→15:43)
[2017-05-31] MEDS: oxyCODONE IR 5 MG TAB PO PRN ×5 (02:37→19:56)
[2017-05-31 05:10] LABS: ANION GAP 9 mEq/L (8-16); C-REACTIVE PROTEIN 69.8 mg/L (<10.0); CALCIUM 8.8 mg/dL (8.5-10.4); CARBON DIOXIDE 21 mEq/l (22-31); CHLORIDE 103 mEq/L (97-110); CREATININE 0.7 mg/dL (0.7-1.3); GLOMERULAR FILTRATION RATE > 60; GLUCOSE 103 mg/dL (70-100); POTASSIUM 3.6 mEq/L (3.5-5.2); SODIUM 133 mEq/L (134-144)
[2017-05-31] MEDS: INSULIN LISPRO 100 UNIT/ML SC SCH ×3 (07:55→17:45)
[2017-05-31] MEDS: SODIUM CHLORIDE 1,000 MG TAB PO SCH ×3 (07:55→23:39)
[2017-05-31] MEDS: predniSONE 20 MG TAB PO SCH (07:56)
[2017-05-31] MEDS: TAMSULOSIN HCL 0.4 MG CAP PO SCH (07:56)
[2017-05-31] MEDS: METOPROLOL SUCCINATE XR 25 MG TAB PO SCH (07:56)
[2017-05-31] MEDS: CITALOPRAM 20 MG TAB PO SCH (08:45)
[2017-05-31] MEDS: CHOLECALCIFEROL VIT D3 2,000 UNITS TAB/CAP PO SCH (08:46)
[2017-05-31] MEDS: FAMOTIDINE 20 MG TAB PO SCH (08:47)
[2017-05-31] MEDS: SENNOSIDES/DOCUSATE SODIUM TAB PO SCH ×2 (08:55→20:00)
[2017-05-31] MEDS ORDERED: ARIPiprazole 5 MG TAB PO SCH (09:00)
--- NOTE | 2017-05-31 10:42 | HOSPPROG ---
Hospitalist Progress Note Assessment/Plan: The patient is a 81-year-old male s/p L3-4, L4-5 TLIF on 05/15/17, who was seen at his post op care visit today and sent to the ED. He was having acute left knee pain and swelling, confusion, and reported UTI. He was evaluated in the ED and noted to have a Na of 128. Urinalysis was ordered but not obtained. No IVF were provided. An arthrocentesis was obtained and is c/w Synovial WBC of 4080 and reportedly Pseudogout. #Left knee Effusion, Pseudogout. Improved significantly on steroids/ reviewed this w neurosurgery who would prefer that he not be on steroids in the setting of recent back surgery will quickly wean him off of them #Hyponatremia, acute on chronic. 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 on salt tabs #Leukocytosis, resolved #Dehydration, resolved #Encephalopathy, resolved would recommend stopping Nucynta and long acting narcotics patient is in agreement with this #Likely UTI per sx's of dysuria. UA at [facility] obtained after abx. on ceftriaxone /symptoms have almost completely resolved # status post L3/4 and L4/5 TLIF has brace on. Feeling comfortable #Chronic Pain Syndrome #AC: On Xarelto #DMII, non insulin dependant diabetes will resume his metformin Plan: patient does not want to go back to jail facility. Had a very bad experience there. PT and OT are both recommending a jail facility. Reviewed with the patient my concerns of the low sodium, recent back surgery, and left knee effusion impacting his ability to care for himself. He is willing to talk to case management about other options today. Hopefully can discharge him soon. Will decrease his prednisone dose and weaned over the next few days in the setting of recent back surgery Subjective: patient has no complaints of pain Objective: Vital Signs Temp Pulse Resp BP Pulse Ox 36.7 C 87 16 173/82 H 96 05/31/17 07:23 05/31/17 07:56 05/31/17 07:23 05/31/17 07:56 05/31/17 07:23 Laboratory Results 05/30/17 04:16 05/31/17 04:17 05/30/17 05/31/17 06/01/17 05:59 05:59 05:59 Intake Total 1100 450 Output Total 675 851 Balance 425 -401 - Physical Exam Constitutional: no apparent distress, appears nourished, not in pain Eyes: PERRL, other ( wearing glasses) Ears, Nose, Mouth, Throat: hearing normal Cardiovascular: regular rate and rhythym Respiratory: no respiratory distress Gastrointestinal: normoactive bowel sounds Skin: warm Musculoskeletal: generalized weakness ( left knee in Gregg wrap) Neurologic: AAOx3 Psychiatric: interacting appropriately, not anxious ICD10 Worksheet Patient Problems: Problems Problem Status Onset Effusion, left knee Acute Hyponatremia Acute Pseudogout of left knee Acute CAD (coronary artery disease) Acute Failed spinal cord stimulator Acute Hyperlipemia Acute Lumbago Acute Lumbar stenosis Acute Neurogenic claudication Acute Ribs, multiple fractures Acute
[2017-05-31] MEDS ORDERED: predniSONE 20 MG TAB PO SCH (11:14)
[2017-05-31] MEDS: RIVAROXABAN 20 MG TAB PO SCH (20:00)
[2017-05-31] MEDS: ATORVASTATIN CALCIUM 20 MG TAB PO SCH (20:00)
[2017-05-31] MEDS: FINASTERIDE 5 MG TAB PO SCH (20:00)
[2017-05-31] MEDS: ZOLPIDEM TARTRATE 5 MG TAB PO SCH (20:00)
[2017-05-31] MEDS ORDERED: FAMOTIDINE 20 MG TAB PO PRN (20:12)
[2017-06-01] MEDS: oxyCODONE IR 5 MG TAB PO PRN ×6 (00:16→12:02)
[2017-06-01] MEDS: hydrALAZINE 20 MG/ML VIAL IVP PRN ×2 (00:16→06:46)
[2017-06-01 05:29] LABS: ANION GAP 13 mEq/L (8-16); CALCIUM 8.9 mg/dL (8.5-10.4); CARBON DIOXIDE 17 mEq/l (22-31); CHLORIDE 106 mEq/L (97-110); CREATININE 0.7 mg/dL (0.7-1.3); GLOMERULAR FILTRATION RATE > 60; GLUCOSE 84 mg/dL (70-100); POTASSIUM 3.9 mEq/L (3.5-5.2); SODIUM 136 mEq/L (134-144)
[2017-06-01] MEDS: ACETAMINOPHEN 325 MG TAB PO PRN (06:40)
[2017-06-01 08:04] VITALS: BP 162/70; PULSE 88; RESP 18; TEMP 98.2; O2SAT 94
[2017-06-01] MEDS: FAMOTIDINE 20 MG TAB PO SCH (08:21)
[2017-06-01] MEDS: TAMSULOSIN HCL 0.4 MG CAP PO SCH (08:21)
[2017-06-01] MEDS: SODIUM CHLORIDE 1,000 MG TAB PO SCH (08:22)
[2017-06-01] MEDS: CHOLECALCIFEROL VIT D3 2,000 UNITS TAB/CAP PO SCH (08:22)
[2017-06-01] MEDS: SENNOSIDES/DOCUSATE SODIUM TAB PO SCH (08:22)
[2017-06-01] MEDS: METOPROLOL SUCCINATE XR 25 MG TAB PO SCH (08:22)
[2017-06-01] MEDS: CITALOPRAM 20 MG TAB PO SCH (08:23)
[2017-06-01] MEDS: INSULIN LISPRO 100 UNIT/ML SC SCH ×2 (08:43→12:03)
[2017-06-01] MEDS ORDERED: COLCHICINE 0.6 MG CAP/TAB PO SCH (09:00)
--- NOTE | 2017-06-01 11:18 | HOSPPROG ---
Hospitalist Progress Note Assessment/Plan: The patient is a 81-year-old male s/p L3-4, L4-5 TLIF on 05/15/17, who was seen at his post op care visit today and sent to the ED. He was having acute left knee pain and swelling, confusion, and reported UTI. He was evaluated in the ED and noted to have a Na of 128. Urinalysis was ordered but not obtained. No IVF were provided. An arthrocentesis was obtained and is c/w Synovial WBC of 4080 and reportedly Pseudogout. #Left knee Effusion, Pseudogout. Improved significantly on steroids/ reviewed this w neurosurgery who would prefer that he not be on steroids in the setting of recent back surgery dc them yesterday started colchicine #Hyponatremia, acute on chronic. 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 resolved will dc salt tabs #Leukocytosis, resolved #Dehydration, resolved #Encephalopathy, resolved would recommend stopping Nucynta and long acting narcotics patient is in agreement with this #Likely UTI per sx's of dysuria. UA at [facility] obtained after abx. on ceftriaxone /has had full treatment # status post L3/4 and L4/5 TLIF has brace on. Feeling comfortable #Chronic Pain Syndrome #AC: On Xarelto #DMII, non insulin dependant diabetes will resume his metformin Plan: dc home/ declining SNF/will have home care check on him Objective: Vital Signs Temp Pulse Resp BP Pulse Ox 36.8 C 88 18 162/70 H 94 06/01/17 08:00 06/01/17 08:00 06/01/17 08:00 06/01/17 08:00 06/01/17 08:00 Microbiology 05/29/17 22:29 Urine Culture - Final Unspecified Laboratory Results 05/30/17 04:16 06/01/17 04:12 05/31/17 06/01/17 06/02/17 05:59 05:59 05:59 Intake Total 450 1950 Output Total 851 700 Balance -401 1250 - Physical Exam Constitutional: no apparent distress, appears nourished, not in pain Eyes: PERRL Ears, Nose, Mouth, Throat: hearing normal Cardiovascular: regular rate and rhythym Respiratory: no respiratory distress Gastrointestinal: normoactive bowel sounds Skin: warm Musculoskeletal: generalized weakness Neurologic: AAOx3 Psychiatric: interacting appropriately ICD10 Worksheet Patient Problems: Problems Problem Status Onset Effusion, left knee Acute Hyponatremia Acute Pseudogout of left knee Acute CAD (coronary artery disease) Acute Failed spinal cord stimulator Acute Hyperlipemia Acute Lumbago Acute Lumbar stenosis Acute Neurogenic claudication Acute Ribs, multiple fractures Acute
--- NOTE | 2017-06-01 11:39 | PDIAF ---
- Diagnosis Diagnosis: l knee effusion, uti, hyponatremia/ s/p L3-L4 & L4-L5 TLIF Code Status: Full Code - Medication Management Discharge Medications: Medications to Continue on Transfer ARIPiprazole [Abilify 5 mg (*)] 5 mg PO Q2D 05/29/17 [Last Taken Unknown] Acetaminophen [Tylenol 325mg (*)] 650 mg PO Q4 PRN 05/29/17 [Last Taken Unknown] Atorvastatin Calcium [Lipitor 20 mg (*)] 20 mg PO HS 05/29/17 [Last Taken Unknown] Cholecalciferol Vit D3 [Vitamin D3 (*)] 2,000 units PO DAILY 05/29/17 [Last Taken Unknown] Citalopram Hydrobromide [celeXA 10 MG] 50 mg PO DAILY 05/29/17 [Last Taken Unknown] Eszopiclone [Lunesta] 2 mg PO HS 05/29/17 [Last Taken Unknown] Famotidine [Pepcid] 40 mg PO DAILY 05/29/17 [Last Taken Unknown] Finasteride [Proscar 5 MG (*)] 5 mg PO HS 05/29/17 [Last Taken Unknown] Hydrocortisone 1% [Hydrocortisone 1% cream (*)] 1 coty TP BID PRN 05/29/17 [Last Taken Unknown] Metoprolol Succinate Xr [Toprol Xl 25 mg (*)] 25 mg PO DAILY 05/29/17 [Last Taken Unknown] Rivaroxaban [Xarelto] 20 mg PO HS 05/29/17 [Last Taken Unknown] Sennosides/Docusate Sodium [Senna-S Tablet] 1 each PO BID 05/29/17 [Last Taken Unknown] Tamsulosin HCl [Flomax 0.4 MG (*)] 0.4 mg PO DAILY 05/29/17 [Last Taken Unknown] metFORMIN HCL [Metformin HCl] 500 mg PO BID 05/29/17 [Last Taken Unknown] Colchicine [Colchicine (*)] 0.6 mg PO DAILY #7 ea 06/01/17 [Last Taken Unknown] Sodium Chloride [Salt Tablet] 2 gm PO DAILY #0 06/01/17 [Last Taken Unknown] oxyCODONE IR [Oxycodone Ir (*)] 5 - 10 mg PO Q4H PRN #20 tab 06/01/17 [Last Taken Unknown] Discharge Medications: Refer to the Discharge Home Medication list for PRN reason. - Orders Services needed: Home Care, Registered Nurse, Physical Therapy, Occupational Therapy Home Care Face to Face: I certify that this patient was under my care and that I had the required [id number] encounter meeting the encounter requirements on the discharge day. My findings support the fact that the patient is homebound as defined in CMS Chapter 7 Medicare Benefits Manual 30.1.1, The condition of the patient is such that there exists a normal inability to leave home and consequently, leaving home would require a considerable and taxing effort. Diet Recommendation: no restrictions on diet Diet Texture: Regular Texture Diet Additional: patient is on many medications/ need to be sure he is taking them appropriately. Has pseudo gout on left knee and recent back surger/ needs a home evaluation to be sure he is safe in his home. Needs to wear back brace anytime oob. - Labs/Radiology BMP Date: 06/10/17 (weekly till stable/) - Follow Up Care Current Providers and Referrals: Nicole Delgado MD [Medical Doctor] - Demarco Longoria MD [Primary Care Provider] - As per Instructions
--- NOTE | 2017-06-01 13:50 | GDS ---
[f rep st] DISCHARGE SUMMARY DISCHARGE DIAGNOSES: 1. Left knee effusion, pseudogout. 2. Hyponatremia. 3. Leukocytosis. 4. Dehydration. 5. Acute encephalopathy. 6. Likely urinary tract infection, much improved. 7. Status post L3-4, L4-5 transforaminal lumbar interbody fusion on 05/15/2017. 8. Chronic pain syndrome. 9. Diabetes type 2, on metformin. CONSULTATIONS: Mark Anthony Brar PA-C, with [facility]. HISTORY OF PRESENT ILLNESS: Briefly, the patient is a 81-year-old male who is status post L3-4, L4-5 fusion, that was done on May 15 at [facility] with Dr. Chele Delgado. He went to see Dr. Delgado at a 2-week postop visit. He was confused. He had significant swelling in his knee and had not restarted the Xarelto. He was at the custodial facility. He was sent to the emergency department and was seen by the ER physician. He had a tap of his left knee which showed pseudogout. He was admitted and was very confused. He was started on treatment with ceftriaxone for possible urinary tract infection. He has improved nicely through his stay. The recommendation today is for him to go to a custodial facility. The patient is declining, and he is decisional. He is in agreement to have home care. HOSPITAL COURSE: 1. Left knee effusion. He was treated with several days of steroids. These were discontinued yesterday. I have started him on colchicine. Pain is well managed. 2. Hyponatremia, acute on chronic. He has been on salt tabs t.i.d. I will continue the salt tabs daily for 7 more days. Will have his sodium level checked at home. This is stable. 3. Leukocytosis, resolved. 4. Dehydration, resolved. 5. Acute encephalopathy. I recommend stopping his Nucynta and long-acting narcotics. He has only needed 1 OxyIR and Tylenol today. He is in agreement with this. He will get a prescription for just OxyIR. 6. Urinary tract infection. He got treatment with ceftriaxone, resolved. 7. Status post lumbar surgery. He will follow up with Dr. Delgado. 8. Chronic pain syndrome, stable. Oral anticoagulated with Xarelto. 9. Diabetes type 2. Resumed his metformin. Glucose is stable at 84. DISCHARGE CONDITION: Stable. Blood pressure is 162/72, heart rate is 88, respiratory rate is 18, O2 sats on room air 94%, temperature is 36.4 Celsius. MEDICATIONS AT DISCHARGE: Please see the EMR. DISCHARGE INSTRUCTIONS: 1. To follow up with Dr. Chele Delgado. 2. To not drink any alcohol while he is on the OxyIR. It will likely make him more confused. 3. Take the colchicine for 7 more days to see if this helps resolve his pseudogout symptoms. Greater than 30 minutes discharging and coordinating care. /[id number]/MODL MTDD
== END 2017-06-01 13:44 | disposition home health service (06) | DRG 564 ==
LOC: F3N 14:51 → OBSVTOIN 16:38
PROVIDERS: ADMIT Family Medicine; ATTEND Family Medicine
PROC: 0S9D3ZZ Drainage of Left Knee Joint, Percutaneous Approach (ICD-10-PCS; principal; 2017-05-29)
DX: M25.462 Effusion, left knee (principal); G93.49 Other encephalopathy; E87.1 Hypo-osmolality and hyponatremia; N39.0 Urinary tract infection, site not specified; M11.262 Other chondrocalcinosis, left knee; E86.0 Dehydration; G89.4 Chronic pain syndrome; E11.9 Type 2 diabetes mellitus without complications; I25.10 Atherosclerotic heart disease of native coronary artery without angina pectoris; I25.2 Old myocardial infarction; Z79.84 Long term (current) use of oral hypoglycemic drugs; Z79.01 Long term (current) use of anticoagulants; Z96.651 Presence of right artificial knee joint; Z98.1 Arthrodesis status; Z85.46 Personal history of malignant neoplasm of prostate; Z95.5 Presence of coronary angioplasty implant and graft
CPT/HCPCS: 97116-GP; 97161-GP; 97166-GO; 97530-GO; 97535-GO; G8978-GP-CL; G8979-GP-CJ; G8987-GO-CK; G8988-GO-CI; G8989-GO-CI; J0360; J0696; J1815

== ENCOUNTER → 2017-06-26 | Outpatient (CLI) | payer OTHER | LOC: FIMAGING 09:53 | PROVIDERS: ATTEND Nurse Practitioner | DX: Z98.1 Arthrodesis status (principal); M54.5 Low back pain ==

== ENCOUNTER 2017-07-14 10:46 | Emergency (ER) | payer OTHER ==
[2017-07-14] MEDS ORDERED: NS 1,000 ML IV ONE ×2 (11:07→12:23)
--- NOTE | 2017-07-14 11:07 | EDPHY ---
H & P Stated Complaint: n/v dry heaving/can't keep his pain meds down HPI/ROS: HPI CHIEF COMPLAINT: Nausea vomiting, can't keep pain medicine down HISTORY OF PRESENT ILLNESS: This patient is 81-year-old male, significant past medical history of coronary artery disease, small-bowel obstruction, chronic back pain, urinary tract infection, so hyponatremia, presents emergency room with nausea vomiting that started around 8 this morning. It has been persistent. Unable to tolerate p. o.. This started after eating yogurt. He has not seen any blood. No diarrhea. Specifically denies chest pain, shortness of breath, abdominal pain. No headache. No neck pain. He states he keeps vomiting unable to tolerate p.o.. Denies abdominal distention. Past Medical History: History of hyponatremia, dehydration, urinary tract infection, chronic back pain, L3/L4-L4/L5 fusion, Past Surgical History: Back surgery, nerve stimulator Social History: Denies daily use of drugs alcohol tobacco products Family History: Noncontributory ROS REVIEW OF SYSTEMS: A comprehensive 10 point review of systems is otherwise negative aside from elements mentioned in the history of present illness. Exam Constitutional appears well nontoxic, triage nursing summary reviewed, vital signs reviewed, awake/alert. Eyes normal conjunctivae and sclera, EOMI, PERRLA. HENT normal inspection, atraumatic, moist mucus membranes, no epistaxis, neck supple/ no meningismus, no raccoon eyes. Respiratory clear to auscultation bilaterally, normal breath sounds, no respiratory distress, no wheezing. Cardiovascular rate normal, regular rhythm, no murmur, no edema, distal pulses normal. Gastrointestinal soft, non-tender, no rebound, no guarding, normal bowel sounds, no distension, no pulsatile mass. Genitourinary no CVA tenderness. Musculoskeletal no midline vertebral tenderness, full range of motion, no calf swelling, no tenderness of extremities, no meningismus, good pulses, neurovascularly intact. Skin pink, warm, & dry, no rash, skin atraumatic. Neurologic awake, alert and oriented x 3, AAOx3, moves all 4 extremities equally, motor intact, sensory intact, CN II-XII intact, normal cerebellar, normal vision, normal speech. Psychiatric normal mood/affect. Heme/Lymph/Immune no lymphadenopathy. Differential Diagnosis: Includes but is not limited to in a particular order bowel obstruction, electrolyte disturbance, dehydration, infection, cardiac disease Medical Decision Making: Plan for this patient IV establishment IV fluid bolus , IV Zofran for nausea, IV morphine for acute pain control, chest x-ray, KUB, check electrolytes troponin. Check EKG. Re-evaluation: EKG interpretation by me on record in [employer] system. Impression time of EKG 11:22 a.m., this is sinus rhythm rate of 77 I do not appreciate acute ischemic change on this EKG. CT scan of the abdomen pelvis with IV contrast. The results of the study are negative for acute intra-abdominal pathology. No evidence free fluid free air or SBO. The study was read by Dr. Danielle. I viewed the images myself on the PACS system. 1349: Repeat EKG time 1:36 p.m., sinus rhythm rate of 75 there is no acute ischemic changes specifically no ST elevation ST depression or significant T- wave abnormalities. Unremarkable EKG. Unchanged from previous EKG today. 1415: Patient is feeling much better. After IV Phenergan. Denies any vomiting. Denies chest pain shortness of breath or abdominal pain. I reviewed his studies with him, and CT scan, EKGs and troponin. Patient states he feels much better would like to go home. He has received IV Zofran and IV Phenergan here. His CT scan does not reveal anything acute. Troponin negative x2. He has not had any chest pain or shortness of breath. Electrolytes and blood work unremarkable. I do not have a great cause of his nausea vomiting. It may be food related. Will allow him to go home but he understands return emergency room if develops worsening abdominal pain fever or vomiting. Source: Patient - Personal History Current Tetanus/Diphtheria Vaccine: Yes Tetanus Vaccine Date: last 10 years - Medical/Surgical History Hx Asthma: No Hx Chronic Respiratory Disease: No Hx Diabetes: Yes Hx Cardiac Disease: Yes Hx Renal Disease: No Hx Cirrhosis: No Hx Alcoholism: No Hx HIV/AIDS: No Hx Splenectomy or Spleen Trauma: No Other PMH: [place] 1998 (2 stents), depression, high cholesterol, osteoporosis, Prostate CA, chronic back pain, neurostimulator in abd, quadruple bypass, r knee relacement, diverticulitis,colectomy - Social History Smoking Status: Never smoked Constitutional: Initial Vital Signs Temperature (C) 36.8 C 07/14/17 10:56 Heart Rate 88 07/14/17 10:56 Respiratory Rate 18 07/14/17 10:56 Blood Pressure 152/86 H 07/14/17 10:56 O2 Sat (%) 94 07/14/17 10:56 O2 Delivery Mode Room Air Allergies/Adverse Reactions: tetracycline [Tetracycline] Allergy (Severe, Verified 07/14/17 10:55) Other-Enter Comments Home Medications: Medication Instructions Recorded ARIPiprazole [Abilify 5 mg (*)] 5 mg PO Q2D 05/29/17 Acetaminophen [Tylenol 325mg (*)] 650 mg PO Q4 PRN 05/29/17 Atorvastatin Calcium [Lipitor 20 20 mg PO HS 05/29/17 mg (*)] Cholecalciferol Vit D3 [Vitamin D3 2,000 units PO DAILY 05/29/17 (*)] Citalopram Hydrobromide [celeXA 10 50 mg PO DAILY 05/29/17 MG] Eszopiclone [Lunesta] 2 mg PO HS 05/29/17 Famotidine [Pepcid] 40 mg PO DAILY 05/29/17 Finasteride [Proscar 5 MG (*)] 5 mg PO HS 05/29/17 Hydrocortisone 1% [Hydrocortisone 1 coty TP BID PRN 05/29/17 1% cream (*)] Metoprolol Succinate Xr [Toprol Xl 25 mg PO DAILY 05/29/17 25 mg (*)] Rivaroxaban [Xarelto] 20 mg PO HS 05/29/17 Sennosides/Docusate Sodium 1 each PO BID 05/29/17 [Senna-S Tablet] Tamsulosin HCl [Flomax 0.4 MG (*)] 0.4 mg PO DAILY 05/29/17 metFORMIN HCL [Metformin HCl] 500 mg PO BID 05/29/17 Colchicine [Colchicine (*)] 0.6 mg PO DAILY #7 ea 06/01/17 Sodium Chloride [Salt Tablet] 2 gm PO DAILY #0 06/01/17 oxyCODONE IR [Oxycodone Ir (*)] 5 - 10 mg PO Q4H PRN #20 tab 06/01/17 Promethazine HCl [Phenergan 12.5mg 12.5 mg PO BID #10 tablet 07/14/17 tab] Medical Decision Making - Diagnostics Imaging Results: Imaging Impressions Abdomen X-Ray 07/14/17 11:14 Impression: Moderate constipation. Chest X-Ray 07/14/17 11:14 Impression: No evidence for acute cardiopulmonary abnormality. Chronic findings as above. Abdomen CT 07/14/17 12:23 Impression: 1. Moderate constipation. Mild diverticulosis of the sigmoid colon without evidence for diverticulitis. 2. Mild dilatation of the distal right ureter with no evidence for ureteral calculus. Possible pyelonephritis. 3. Small hiatal hernia. 4. Other chronic findings as above. Results called and discussed with Mikal Mcintyre MD on 07/14/2017 at 1333 hours. - Data Points Laboratory Results: Laboratory Results 07/14/17 11:12 07/14/17 11:12 07/14/17 07/14/17 07/14/17 13:40 13:16 11:12 WBC RBC Hgb Hct MCV MCH MCHC RDW Plt Count MPV Neut % (Auto) Lymph % (Auto) [place] % (Auto) Eos % (Auto) Baso % (Auto) Nucleat RBC Rel Count Absolute Neuts (auto) Absolute Lymphs (auto) Absolute Monos (auto) Absolute Eos (auto) Absolute Basos (auto) Absolute Nucleated RBC Immature Gran % Immature Gran # VBG Lactic Acid Sodium 134 mEq/L mEq/L (134-144) Potassium 3.8 mEq/L mEq/L (3.5-5.2) Chloride 98 mEq/L mEq/L (97-110) Carbon Dioxide 23 mEq/l mEq/l (22-31) Anion Gap 13 mEq/L mEq/L (8-16) BUN 13 mg/dL mg/dL (7-23) Creatinine 0.7 mg/dL mg/dL (0.7-1.3) Estimated GFR > 60 Glucose 95 mg/dL mg/dL (70-100) Calcium 9.2 mg/dL mg/dL (8.5-10.4) Total Bilirubin 0.8 mg/dL mg/dL (0.1-1.4) Conjugated Bilirubin 0.2 mg/dL mg/dL (0.0-0.5) Unconjugated Bilirubin 0.6 mg/dL mg/dL (0.0-1.1) AST 23 IU/L IU/L (17-59) ALT 27 IU/L IU/L (21-72) Alkaline Phosphatase 59 IU/L IU/L (38-126) Troponin I < 0.012 ng/mL ng/mL < 0.012 ng/mL ng/mL (0-0.034) (0-0.034) Total Protein 7.1 g/dL g/dL (6.3-8.2) Albumin 4.2 g/dL g/dL (3.5-5.0) Lipase 27.0 IU/L IU/L (23-300) Urine Color YELLOW Urine Appearance CLEAR Urine pH 6.0 (5.0-7.5) Ur Specific [place] 1.014 (1.002-1.030) Urine Protein NEGATIVE (NEGATIVE) Urine Ketones NEGATIVE (NEGATIVE) Urine Blood NEGATIVE (NEGATIVE) Urine Nitrate NEGATIVE (NEGATIVE) Urine Bilirubin NEGATIVE (NEGATIVE) Urine Urobilinogen NEGATIVE EU EU (0.2-1.0) Ur Leukocyte Esterase NEGATIVE (NEGATIVE) Urine Glucose NEGATIVE (NEGATIVE) 07/14/17 07/14/17 11:12 11:12 WBC 9.63 10^3/uL H 10^3/uL (3.80-9.50) RBC 5.39 10^6/uL 10^6/uL (4.40-6.38) Hgb 15.4 g/dL g/dL (13.7-17.5) Hct 45.5 % % (40.0-51.0) MCV 84.4 fL fL (81.5-99.8) MCH 28.6 pg pg (27.9-34.1) MCHC 33.8 g/dL g/dL (32.4-36.7) RDW 13.3 % % (11.5-15.2) Plt Count 180 10^3/uL 10^3/uL (150-400) MPV 9.6 fL fL (8.7-11.7) Neut % (Auto) 75.3 % H % (39.3-74.2) Lymph % (Auto) 13.3 % L % (15.0-45.0) [place] % (Auto) 10.2 % % (4.5-13.0) Eos % (Auto) 0.6 % % (0.6-7.6) Baso % (Auto) 0.2 % L % (0.3-1.7) Nucleat RBC Rel Count 0.0 % % (0.0-0.2) Absolute Neuts (auto) 7.25 10^3/uL H 10^3/uL (1.70-6.50) Absolute Lymphs (auto) 1.28 10^3/uL 10^3/uL (1.00-3.00) Absolute Monos (auto) 0.98 10^3/uL H 10^3/uL (0.30-0.80) Absolute Eos (auto) 0.06 10^3/uL 10^3/uL (0.03-0.40) Absolute Basos (auto) 0.02 10^3/uL 10^3/uL (0.02-0.10) Absolute Nucleated RBC 0.00 10^3/uL 10^3/uL (0-0.01) Immature Gran % 0.4 % % (0.0-1.1) Immature Gran # 0.04 10^3/uL 10^3/uL (0.00-0.10) VBG Lactic Acid 1.8 mmol/L mmol/L (0.7-2.1) Sodium Potassium Chloride Carbon Dioxide Anion Gap BUN Creatinine Estimated GFR Glucose Calcium Total Bilirubin Conjugated Bilirubin Unconjugated Bilirubin AST ALT Alkaline Phosphatase Troponin I Total Protein Albumin Lipase Urine Color Urine Appearance Urine pH Ur Specific [place] Urine Protein Urine Ketones Urine Blood Urine Nitrate Urine Bilirubin Urine Urobilinogen Ur Leukocyte Esterase Urine Glucose Medications Given: Discontinued Medications Sodium Chloride (Ns) 1,000 mls @ 0 mls/hr IV EDNOW ONE; Wide Open PRN Reason: Protocol Stop: 07/14/17 11:08 Last Admin: 07/14/17 11:18 Dose: 1,000 mls Sodium Chloride (Ns) 1,000 mls @ 0 mls/hr IV ONCE ONE PRN Reason: Wide Open Stop: 07/14/17 12:24 Last Admin: 07/14/17 12:29 Dose: 1,000 mls Morphine Sulfate (Morphine) 4 mg IVP EDNOW ONE Stop: 07/14/17 11:14 Last Admin: 07/14/17 11:21 Dose: 4 mg Ondansetron HCl (Zofran) 4 mg IVP EDNOW ONE Stop: 07/14/17 11:14 Last Admin: 08/13/17 11:19 Dose: 4 mg Promethazine HCl (Phenergan) 6.25 mg IVP ONCE ONE Stop: 07/14/17 12:24 Last Admin: 07/14/17 12:27 Dose: 6.25 mg Departure - Departure Disposition: Home, Routine, Self-Care Clinical Impression: Vomiting Qualifiers: Vomiting type: unspecified Vomiting Intractability: non-intractable Nausea presence: with nausea Qualified Code(s): R11.2 - Nausea with vomiting, unspecified Condition: Good Instructions: Acute Nausea and Vomiting (ED) Additional Instructions: 1.Return emergency room if develops worsening vomiting fever or you do not feel well. 2. [place] diet for the next 24 to 48 hours. 3. Return if worse. 4. Phenergan for nausea this can make her sleepy. Referrals: Demarco Longoria MD [Primary Care Provider] - As per Instructions Prescriptions: Promethazine HCl [Phenergan 12.5mg tab] 12.5 mg PO BID #10 tablet
[2017-07-14] MEDS ORDERED: ONDANSETRON 4 MG/2 ML VIAL ONE (11:12)
[2017-07-14] MEDS ORDERED: ONDANSETRON 4 MG/2 ML VIAL IVP ONE (11:13)
[2017-07-14 11:20] LABS: % IMMATURE GRANULYOCYTES 0.4 % (0.0-1.1); ABSOLUTE IMMATURE GRANULOCYTES 0.04 10^3/uL (0.00-0.10); ADD DIFF? NO; ADD MORPH? NO; ADD SCAN? NO; ATYPICAL LYMPHOCYTE FLAG 0 (0-99); FRAGMENT RBC FLAG 0 (0-99); HEMATOCRIT 45.5 % (40.0-51.0); HEMOGLOBIN 15.4 g/dL (13.7-17.5); LEFT SHIFT FLG 0 (0-99); LIPEMIA HEMOLYSIS FLAG 90 (0-99); MEAN CELL HEMOGLOBIN 28.6 pg (27.9-34.1); MEAN CELL HEMOGLOBIN CONCENTR. 33.8 g/dL (32.4-36.7); MEAN CELL VOLUME 84.4 fL (81.5-99.8); MEAN PLATELET VOLUME 9.6 fL (8.7-11.7); PLATELET CLUMPS FLAG 10 (0-99); PLATELET COUNT 180 10^3/uL (150-400); RED BLOOD CELL COUNT 5.39 10^6/uL (4.40-6.38); RED CELL DISTRIBUTION WIDTH 13.3 % (11.5-15.2)
--- NOTE | 2017-07-14 11:24 | CPEKG ---
Heart Rate: 77 RR Interval: 779 P-R Interval: 172 QRSD Interval: 96 QT Interval: 380 QTC Interval: 431 P [place]: 45 QRS [place]: 40 T Wave [place]: 7 EKG Severity - BORDERLINE ECG - EKG Impression: SINUS RHYTHM EKG Impression: PROBABLE LEFT ATRIAL ABNORMALITY EKG Impression: BORDERLINE T WAVE ABNORMALITIES Electronically Signed By: Mikal Mcintyre 14-Jul-2017 15:12:42
[2017-07-14 11:32] LABS: ALANINE AMINOTRANSFERASE 27 IU/L (21-72); ALBUMIN 4.2 g/dL (3.5-5.0); ALKALINE PHOSPHATASE 59 IU/L (38-126); ANION GAP 13 mEq/L (8-16); ASPARTATE AMINOTRANSFERASE 23 IU/L (17-59); BILIRUBIN,TOTAL 0.8 mg/dL (0.1-1.4); BILIRUBIN-CONJUGATED 0.2 mg/dL (0.0-0.5); BILIRUBIN-UNCONJUGATED 0.6 mg/dL (0.0-1.1); CALCIUM 9.2 mg/dL (8.5-10.4); CARBON DIOXIDE 23 mEq/l (22-31); CHLORIDE 98 mEq/L (97-110); CREATININE 0.7 mg/dL (0.7-1.3); GLOMERULAR FILTRATION RATE > 60; GLUCOSE 95 mg/dL (70-100); POTASSIUM 3.8 mEq/L (3.5-5.2); SODIUM 134 mEq/L (134-144); TOTAL PROTEIN 7.1 g/dL (6.3-8.2)
[2017-07-14 11:43] LABS: TROPONIN I < 0.012 ng/mL (0-0.034)
[2017-07-14] MEDS ORDERED: PROMETHAZINE HCL 25 MG/ML INJ IVP ONE (12:23)
[2017-07-14] MEDS ORDERED: IOPAMIDOL (ISOVUE-300) 100 ML BTL ONE (12:32)
--- NOTE | 2017-07-14 13:38 | CPEKG ---
Heart Rate: 75 RR Interval: 800 P-R Interval: 172 QRSD Interval: 92 QT Interval: 396 QTC Interval: 443 P [place]: 35 QRS [place]: 29 T Wave [place]: 13 EKG Severity - BORDERLINE ECG - EKG Impression: SINUS RHYTHM EKG Impression: PROBABLE LEFT ATRIAL ABNORMALITY Electronically Signed By: Mikal Mcintyre 14-Jul-2017 15:12:42
[2017-07-14 13:39] LABS: COLOR YELLOW; LEUKOCYTE ESTERASE,URINE NEGATIVE (NEGATIVE); NITRITE,URINE NEGATIVE (NEGATIVE)
[2017-07-14 14:28] VITALS: BP 147/69; PULSE 77; RESP 14; TEMP 97; O2SAT 96
== END 2017-07-14 14:31 | disposition home or self-care (01) ==
DX: R11.2 Nausea with vomiting, unspecified (principal); I25.10 Atherosclerotic heart disease of native coronary artery without angina pectoris; E11.9 Type 2 diabetes mellitus without complications; E86.9 Volume depletion, unspecified; Z85.46 Personal history of malignant neoplasm of prostate; Z79.84 Long term (current) use of oral hypoglycemic drugs
CPT/HCPCS: 71010; 74000; 74177; 93005; 96361; 96374; 96375; 99285; J2405; J2550; Q9967

== ENCOUNTER → 2017-08-02 | Outpatient (CLI) | payer OTHER | LOC: FIMAGING 11:08 | PROVIDERS: ATTEND Nurse Practitioner | DX: Z09 Encounter for follow-up examination after completed treatment for conditions other than malignant neoplasm (principal); Z98.1 Arthrodesis status ==

== ENCOUNTER → 2017-10-07 | Outpatient (CLI) | payer OTHER | LOC: FIMAGING 09:23 | PROVIDERS: ATTEND Physician Assistant | DX: M43.16 Spondylolisthesis, lumbar region (principal); Z98.1 Arthrodesis status ==

== ENCOUNTER → 2017-10-25 | Outpatient (CLI) | payer OTHER | LOC: FIMAGING 06:43 | PROVIDERS: ATTEND Neurological Surgery | DX: M51.36 Other intervertebral disc degeneration, lumbar region (principal); M46.96 Unspecified inflammatory spondylopathy, lumbar region; M48.061 Spinal stenosis, lumbar region without neurogenic claudication; S22.080A Wedge compression fracture of T11-T12 vertebra, initial encounter for closed fracture; Z98.1 Arthrodesis status ==

== ENCOUNTER → 2017-11-18 | Outpatient (CLI) | payer OTHER | LOC: FIMAGING 13:52 | PROVIDERS: ATTEND Internal Medicine | DX: J40 Bronchitis, not specified as acute or chronic (principal); M51.34 Other intervertebral disc degeneration, thoracic region ==

== ENCOUNTER → 2017-11-19 | Outpatient (CLI) | payer OTHER | LOC: FIMAGING 11:45 | PROVIDERS: ATTEND Internal Medicine | DX: J40 Bronchitis, not specified as acute or chronic (principal); I25.10 Atherosclerotic heart disease of native coronary artery without angina pectoris; K57.30 Diverticulosis of large intestine without perforation or abscess without bleeding ==

== ENCOUNTER → 2018-01-07 | Outpatient (CLI) | payer OTHER | LOC: FIMAGING 13:49 | PROVIDERS: ATTEND Physician Assistant | DX: Z09 Encounter for follow-up examination after completed treatment for conditions other than malignant neoplasm (principal); Z98.1 Arthrodesis status ==

== ENCOUNTER → 2018-02-05 | Outpatient (CLI) | payer OTHER | LOC: BHLMT 10:00 | PROVIDERS: ATTEND Internal Medicine Cardiovascular Disease | DX: I35.9 Nonrheumatic aortic valve disorder, unspecified (principal); I10 Essential (primary) hypertension | CPT/HCPCS: 93306-PO ==

== ENCOUNTER 2018-02-13 05:52 | Inpatient (IN) | payer OTHER ==
[2018-02-13] MEDS ORDERED: ceFAZolin 2 GM/SWFI 2 GM/20 ML SYR IVP ONE (06:14)
[2018-02-13] MEDS ORDERED: GABAPENTIN 300 MG CAP PO ONE (06:14)
[2018-02-13] MEDS ORDERED: ACETAMINOPHEN 500 MG TAB PO ONE (06:14)
[2018-02-13] MEDS ORDERED: ceFAZolin 2 GM/SWFI 20 ML SYR IVP ONE (06:21)
[2018-02-13] MEDS ORDERED: GABAPENTIN 300 MG CAP ONE (06:21)
[2018-02-13] MEDS ORDERED: ACETAMINOPHEN 500 MG TAB ONE (06:21)
[2018-02-13] MEDS ORDERED: BUPIVACAINE 0.25% 30 ML SDV ONE (06:40)
[2018-02-13] MEDS ORDERED: CHLORHEXIDINE GLUC HIBICLENS 118 ML BTL TP ONE (06:40)
[2018-02-13] MEDS ORDERED: THROMBIN (BOVINE) 20,000 UNIT VIAL TP ONE (06:40)
[2018-02-13] MEDS ORDERED: BACITRACIN 50,000 UNITS/10 ML SYR IRR ONE (06:41)
[2018-02-13] MEDS ORDERED: MIDAZOLAM 2 MG/2 ML VIAL IVP ONE (06:50)
--- NOTE | 2018-02-13 06:54 | PDANEPAE ---
ANE History of Present Illness lumbar spinal stenosis ANE Past Medical History - Cardiovascular History Hx Hypertension: Yes Hx Arrhythmias: Yes Hx Chest Pain: No Hx Coronary Artery / Peripheral Vascular Disease: Yes Hx CHF / Valvular Disease: Yes Hx Palpitations: No Cardiovascular History Comment: ATRIAL FIBRILATION POST HEART BYPASS SURG 2014 ONE TIME EPISODE. AORTIC VALVE DISEASE. PREV MD. STENT - Pulmonary History Hx COPD: No Hx Asthma/Reactive Airway Disease: No Hx Recent Upper Respiratory Infection: No Hx Oxygen in Use at Home: No Hx Sleep Apnea: Yes Sleep Apnea Screening Result - Last Documented: Positive Pulmonary History Comment: SUPRIYA USES C-PAP - Neurologic History Hx Cerebrovascular Accident: No Hx Seizures: No Hx Dementia: No Neurologic History Comment: ON RX FOR STROKE PREVENTION - Endocrine History Hx Diabetes: Yes - Renal History Hx Renal Disorders: Yes Renal History Comment: HX PROSTATE CA. NOCTURIA - Liver History Hx Hepatic Disorders: No - Neurological & Psychiatric Hx Hx Neurological and Psychiatric Disorders: Yes Neurological / Psychiatric History Comment: DEPRESSION/ANXIETY - Cancer History Hx Cancer: Yes Cancer History Comment: PROSTATE - Congenital Disorder History Hx Congenital Disorders: No - GI History Hx Gastrointestinal Disorders: Yes Gastrointestinal History Comment: DIVERTICULOSIS. GERD. PREV PARTIAL COLECTOMY - Other Health History Other Health History: BILAT HEARING AIDS AND GLASSES. DENTAL IMPLANT 02/04/18 NOW ON POST ANTIBIOTICS - Chronic Pain History Chronic Pain: Yes - Surgical History Prior Surgeries: TLIF 05/2017. GABG X4 2013,. NEURO STIMULATOR,. LYSIS OF ADHESION. RT TOTAL KNEE 1993. PARTIAL COLECTOMY FOR DIVERTICULITIS. HEMMOROIDS. APPY ANE Review of Systems Review of systems is: negative Review of Systems: - Exercise capacity Exercise capacity: >=4 METS ANE Patient History - Allergies Allergies/Adverse Reactions: tetracycline [Tetracycline] Allergy (Severe, Verified 07/14/17 10:55) Other-Enter Comments - Home Medications Home medications: home medication list seen and reviewed Home Medications: ARIPiprazole [Abilify 5 mg (*)] 5 mg PO Q2D 05/29/17 [Last Taken 02/11/18] Atorvastatin Calcium [Lipitor 20 mg (*)] 10 mg PO HS 05/29/17 [Last Taken Unknown] Cholecalciferol Vit D3 [Vitamin D3 (*)] 2,000 units PO DAILY 05/29/17 [Last Taken 02/05/18] Citalopram Hydrobromide [celeXA 10 MG] 50 mg PO DAILY 05/29/17 [Last Taken 02/12] Eszopiclone [Lunesta] 2 mg PO HS 05/29/17 [Last Taken Unknown] Famotidine [Pepcid] 40 mg PO DAILY 05/29/17 [Last Taken 02/13/18] Finasteride [Proscar 5 MG (*)] 5 mg PO HS 05/29/17 [Last Taken 02/12/18] Metoprolol Succinate Xr [Toprol Xl 25 mg (*)] 25 mg PO HS 05/29/17 [Last Taken 02/12/18] Rivaroxaban [Xarelto] 20 mg PO HS 05/29/17 [Last Taken 02/05/18] metFORMIN HCL [Metformin HCl] 500 mg PO BID 05/29/17 [Last Taken 02/10/18] HCTZ (*) DAILY 02/04/18 [Last Taken 02/12/18] Miralax 17 gm (*) DAILY 02/04/18 [Last Taken 02/11/18] Flomax 0.4 MG (*) 02/13/18 [Last Taken 02/12/18] - NPO status NPO Since - Liquids (Date): 02/13/18 NPO Since - Solids (Date): 02/12/18 - Anes Hx Anes Hx: no prior problems - Smoking Hx Smoking Status: Never smoked - Family Anes Hx Family Hx Anesthesia Complications: NA ANE Labs/Vital Signs - Vital Signs Height: 177.8 cm Weight: 105.233 kg ANE Physical Exam - Airway Neck exam: FROM Mallampati Score: Class 3 Mouth exam: small mouth opening - Pulmonary Pulmonary: no respiratory distress - Cardiovascular Cardiovascular: regular rate and rhythym - ASA Status ASA Status: III ANE Anesthesia Plan Anesthesia Plan: general endotracheal anesthesia Lines/Monitors: arterial line Specialized Airway: video laryngoscope
[2018-02-13] MEDS ORDERED: fentaNYL 100 MCG/2 ML INJ ONE (07:00)
[2018-02-13] MEDS ORDERED: PROPOFOL 200 MG/20 ML VIAL ONE ×2 (07:00→11:54)
[2018-02-13] MEDS ORDERED: REMIFENTANIL HCL 1 MG VIAL ONE ×4 (07:00→12:10)
[2018-02-13] MEDS ORDERED: PROPOFOL/EMULSION 500 MG/50 ML BOTTLE IV ONE ×2 (07:00→09:47)
[2018-02-13] MEDS ORDERED: LIDOCAINE 2% 5 ML SDV ONE (07:01)
[2018-02-13] MEDS ORDERED: LR 1,000 ML IV ONE (07:13)
[2018-02-13] MEDS ORDERED: ROCURONIUM 50 MG/5 ML VIAL ONE ×2 (07:14)
[2018-02-13] MEDS ORDERED: PHENYLEPHRINE 10 MG/ML SDV ONE (07:16)
[2018-02-13] MEDS ORDERED: NALOXONE HCL 0.4 MG/ML INJ IVP PRN ×2 (07:45→12:30)
[2018-02-13] MEDS ORDERED: LACTULOSE 20 GM/30 ML UDCUP PO PRN (07:45)
[2018-02-13] MEDS ORDERED: diphenhydrAMINE 25 MG CAP PO PRN (07:45)
[2018-02-13] MEDS ORDERED: BISACODYL 10 MG SUPP PR PRN (07:45)
[2018-02-13] MEDS ORDERED: DEXAMETHASONE 4 MG/ML VIAL ONE (08:18)
[2018-02-13] MEDS ORDERED: ONDANSETRON 4 MG/2 ML VIAL ONE (08:19)
[2018-02-13] MEDS ORDERED: HYDROmorphONE/DILAUDID 2 MG/ML INJ ONE ×2 (08:22→13:24)
[2018-02-13] MEDS ORDERED: ceFAZolin 1 GM VIAL ONE (10:57)
--- NOTE | 2018-02-13 11:50 | PDMN ---
Medical Necessity Medical necessity: Pt meets IP criteria; [facility] IP only surgery; CPT 97324 Lumbar Fusion [id number] Removal Posterior Spinal Instrumentation
[2018-02-13] MEDS ORDERED: ALBUTEROL 3 ML DEYVIAL IH PRN (12:30)
[2018-02-13] MEDS ORDERED: ONDANSETRON 4 MG/2 ML VIAL IVP PRN (12:30)
[2018-02-13] MEDS ORDERED: LABETALOL HCL 5 MG/ML 20 ML MDV IVP PRN (12:30)
[2018-02-13] MEDS ORDERED: OXYCODONE/APAP 5/325 TAB PO PRN (12:30)
[2018-02-13] MEDS ORDERED: LR 500 ML IV PRN (12:30)
[2018-02-13] MEDS ORDERED: PROMETHAZINE HCL 25 MG/ML INJ IVP PRN (12:30)
[2018-02-13] MEDS ORDERED: ACETAMINOPHEN 500 MG TAB PO PRN (12:30)
[2018-02-13] MEDS ORDERED: fentaNYL 100 MCG/2 ML INJ IVP PRN (12:30)
--- NOTE | 2018-02-13 12:59 | POSTOPPROG ---
Post Op Note Date of Operation: 02/13/18 Surgeon: Nicole Delgado Casting Room Helper: Francisca Morales NP Anesthesia: GET(General Endotracheal) Pre-op Diagnosis: Lumbar stenosis, adjacent segment disease Procedure: L1-2, L2-3 TLIF with tie into existing hardware Inf/Abcess present in the surg proc area at time of surgery?: No Depth: Deep Incisional (Fascial) EBL: 100-500 Total fluids administered: see anesthesia Complications: none Drains: [place] Date of Surgery: 02/13/18 Post Op Day: 0 Assessment/Plan: Assessment: 82 yr old s/p L1-2, L2-3 TLIF with tie into existing hardware for lower back pain Plan: -Admit to SDU -PT/OT -Pain management-BUNDLE BREAKER ordered if needed -Wear brace when out of bed, patient has brace- will bring from home -Post op xrays pending for am -MARKUS to suction -Please call neurosurgery with questions/concerns Subjective: Patient waking up in PACU Objective: Waking up in PACU Moving extremities x4 Sensation intact to light touch BLE Dressing CDI MARKUS patent Appropriate Neuro Check Frequency Ordered: Yes
--- NOTE | 2018-02-13 13:22 | POSTANESTH ---
Post Anesthetic Evaluation Cardiovascular Status: Normal, Stable Respiratory Status: Normal, Stable Level of Consciousness/Mental Status: Can Participate in Eval Pain Control: Adequate, Prn Tx Ordered Nausea/Vomiting Control: Adequate, Prn Tx Ordered Complications Possibly Related to Anesthesia: None Noted
[2018-02-13] MEDS: HYDROmorphONE/DILAUDID 2 MG/ML INJ IVP PRN ×6 (13:52→15:27)
[2018-02-13] MEDS ORDERED: ceFAZolin 2 GM/DEXTROSE 100 ML IV SCH (14:00)
--- NOTE | 2018-02-13 14:21 | GOP ---
[f rep st] OPERATIVE REPORT DATE OF OPERATION: 02/13/2018 SURGEON: Chele Delgado MD NEUROSURGEON: Chele Delgado MD. FLIGHT DISPATCHER: Francisca Morales, Nurse Practitioner. 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 Severe stenosis L2-3. Moderate stenos is L1-2. Degenerative disk disease L1-2. Prior lumbar fusion L3, L4, L5. 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 Severe stenosis L2-3. Moderate steno sis L1-2. Degenerative disk disease L1-2. Prior lumbar fusion L3, L4, L5. PROCEDURE PERFORMED: Lumbar laminectomy with posterolateral and intervertebral arthrodeses L1-2, L2- 3 (12058, 70747), removal of posterior segmental instrumentation at L3 and L4 (21524), posterior new segmental instrumentation L1, L2-L3 (09217), same incision bone graft harvest, microscope, placement of biomechanical intervertebral device L1-2, L2-3, spinal stereotaxis FINDINGS: ESTIMATED BLOOD LOSS: 400 cc. INDICATIONS: The patient is an elderly gentleman who underwent a successful two-level fusion [facility]. He had a relatively good clinical result, but he began to develop increasingly severe axial lo w back pain. It was becoming really difficult to manage and he says he was about to go into a wheelc hair; the pain was getting so severe he could not walk. There is not a lot of radiation into the leg s. Imaging demonstrated the development of new severe adjacent-segment disease at L2-3, and degenerative disk disease at L1-2. There was left-sided disk protrusion at L1-2, creating some left lateral rece ss stenosis at that level, but there was a broad prolapse of the L2-3 disk and hypertrophy of the fac et joints at L2-3, creating severe stenosis there. It was my feeling this was the source of his pain . He did want to proceed with surgery. He knew there was risk of further adjacent-segment degenerat ion and additional surgery. The L5-S1 level looked relatively pristine. There was no evidence of any compressive lesion there. He understood surgery may or may not give him relief, but this is the most reasonable way to try to a void further deterioration. The risk of screw and hardware malposition was discussed. He knew there was risk of CSF leak and nerve injury, and he did want to proceed despite all these risks. DESCRIPTION OF PROCEDURE: Procedure in detail: The patient was taken to the operating room, placed in the supine position. General anesthesia was begun. He was flipped prone onto the Trent table. Care was taken to pad all points of contact. His back was sterilely prepped and draped in usual fas hion. A localizing x-ray was taken. We anesthetized the paraspinal tissues with 0.25% Marcaine with epinephrine. We then performed an excision of his prior scar, and we did open the entire previous i ncision and extended rostrally about 4 cm. The subcutaneous tissue was dissected using the plasma bl jose luis down through the fascia, and a subperiosteal dissection was made down the inferior lamina of T12. The complete laminae of L1, L2 and L3 were exposed. Prior hardware at L3 was exposed, as well as t he screw at L4. On the right-hand side in the paraspinal location was a fluid-filled sac that may or may not contain spinal fluid, but we identified this and we were able to stay out of it completely. We removed the cap screws at L3 and L4, and then took a carbide bit and cut the reji just below the L3 tulips. We removed these 2 small portions of the reji and then removed the L3 screws. They were cecily y tight. We then denuded the L2-3 and the L1-2 facet joints. We preserved the T12-L1 facet joint. We performed an O-arm spin, and using frameless Stealth stereotaxy, placed pedicle screws bilaterally at L1 and L2. They were in excellent position. We also investigated the quality of the fusion at L 3-4, L4-5, and there appeared to be solid fusion at both of those levels, and again there is no lucen cy around the hardware on the O-arm spins. We placed an inline connector and a 70 mm reji and connect ed to the new tulips, grabbing the rostral aspect of the old reji. We tightened the set screws and th e connector to company specification, and then placed the set screws at L1 and L2. We distracted at each level, distracting slightly more at L1-2 than L2-3. We then removed all the soft tissue of the bone at L1, L2-3. Harvested the L2 spinous process for autologous grafting purposes, and the complet e bilateral lamina of L2 for autologous grafting purposes. We did a left L1-2 hemilaminectomy and mackey rvested this for autologous grafting purposes. Under the scope, we decompressed bilaterally at L2-3. On the right-hand side at L2-3, there was a lo t of adherence of the ligamentum flavum and hypertrophic facet joint material to the dura. These fac et joints, we did notice as we denuded them, were quite abnormal and there was a large amount of flui d in the right L2-3 facet joint. We got great decompression over the spinal canal bilaterally at L2- 3. We performed a left L2-3 facetectomy and a left L1-2 facetectomy. We then swept the nerve root m edially, coagulated the epidural veins, removed the L2-3 disk, roughened the subchondral bone to crea te arthrodesis. From the left-hand side we did likewise at L1-2. Here, we were very careful only to retract a few millimeters of the L2 nerve root. We were below the conus on the MRI but nevertheless , we were very gentle with retraction at the L1-2 level. Here, we drilled into the disk and osteophy te protrusion on the left-hand side and removed the disk and the cartilaginous endplates. We roughen ed the subchondral bone to create arthrodesis there. We packed bone autograft and BMP into the disk space at L1-2, L2-3, followed by an expandable 7 x 28 mm cage at L2-3 and a non expandable crescent cage, a 7 x 25 mm cage at L1-2. These were in excellen t position. Fluoroscopy was used to confirm this. We had replaced all the cap screws in the tulips that had been removed at the beginning of the procedure. We decorticated all the posterolateral bone bilaterally and placed BMP and bone posterolaterally bilaterally. We used a total of 4.0 mg of BMP on this case. A subfascial drain was placed. We then closed the incision in multiple layers using V icryl sutures. Steri-Strips were applied the skin. The patient was reversed from anesthesia, extuba melissa, and transferred to recovery room in stable condition. There were no complications. COMPLICATIONS: None. INSTRUMENTATION USED: We used Solera 5.5 mm titanium rods bilaterally with Solera screws 6.5 mm diam eter L1, L2, with inline connectors at the L3 level. /[id number]/MODL
[2018-02-13] MEDS: FAMOTIDINE 20 MG TAB PO SCH ×2 (16:40→21:16)
[2018-02-13] MEDS: SENNOSIDES/DOCUSATE SODIUM TAB PO SCH ×2 (16:40→21:15)
[2018-02-13] MEDS: GABAPENTIN 300 MG CAP PO SCH ×2 (16:41→21:16)
[2018-02-13] MEDS: ACETAMINOPHEN 500 MG TAB PO SCH ×2 (16:41→18:12)
[2018-02-13] MEDS: METHOCARBAMOL 750 MG TAB PO SCH ×3 (16:41→21:16)
[2018-02-13] MEDS: oxyCODONE IR 5 MG TAB PO PRN ×3 (17:15→22:04)
[2018-02-13] MEDS: ceFAZolin 2 GM/SWFI 2 GM/20 ML SYR IVP SCH (17:16)
[2018-02-13] MEDS: NS 1,000 ML IV SCH (17:16)
[2018-02-13] MEDS: TAMSULOSIN HCL 0.4 MG CAP PO SCH (21:16)
[2018-02-14] MEDS: morphINE PCA 30 MG/30 ML PCA IV PRN ×2 (00:55→07:14)
[2018-02-14] MEDS: ceFAZolin 2 GM/SWFI 2 GM/20 ML SYR IVP SCH (00:57)
[2018-02-14] MEDS: oxyCODONE IR 5 MG TAB PO PRN ×6 (01:39→22:32)
[2018-02-14] MEDS: ACETAMINOPHEN 500 MG TAB PO SCH ×3 (05:39→21:48)
[2018-02-14] MEDS: GABAPENTIN 300 MG CAP PO SCH ×3 (05:39→21:49)
[2018-02-14] MEDS: METHOCARBAMOL 750 MG TAB PO SCH ×4 (05:40→21:48)
[2018-02-14] MEDS: NS 1,000 ML IV SCH (06:26)
[2018-02-14 07:18] LABS: PLATELET COUNT 138 10^3/uL (150-400)
--- NOTE | 2018-02-14 07:50 | NEUSURGPN ---
Date of Surgery: 02/13/18 Post Op Day: 1 Assessment/Plan: Assessment: 82 yr old s/p L1-2, L2-3 TLIF with tie into existing hardware for lower back pain POD#1 Plan: -Transfer to floor -PT/OT -Pain management-Patient using [employer], will increase frequency of oxycodone- patient was taking this prior to surgery -Wear brace when out of bed -Post op xrays pending this am -MARKUS to suction, will leave in today -Patient was seen by Dr Delgado as well today -Please call neurosurgery with questions/concerns Subjective: Pre op back pain improved Objective: AxO x3 PERRL No facial droop 5/5 BUE, BLE sensation intact to light touch BLE dressing CDI MARKUS patent Neuro Check Frequency: per routine Urinary Catheter in Place: No Catheter Insertion Date: 02/13/18 - Physician Discussed Patient with : Danny Patient Seen by : Danny Neurosurgery Physical Exam - Vitals, I&O, Labs I and O 02/13/18 02/14/18 02/15/18 05:59 05:59 05:59 Intake Total 4580 Output Total 1465 Balance 3115 Weight 105.233 kg Intake: Oral (ml) 1000 IV Intake (ml) 2675 IV Infused (ml) 905 Ns 1,000 ml @ 75 mls/hr 905 IV CONT GRICEL Rx#: [id number] Output: Urine (ml) 750 Catheter 750 Estimated Blood Loss (ml) 400 MARKUS Drain Output (ml) 315 #1 Left Back Trent 315 Spring Vital Signs Temp Pulse Resp BP Pulse Ox 36.7 C 76 14 123/58 H 92 02/14/18 04:00 02/14/18 04:00 02/14/18 04:00 02/14/18 04:00 02/14/18 04:00 Laboratory Results 02/14/18 05:48 02/14/18 05:48 ICD10 Worksheet Patient Problems: Problems Problem Status Onset CAD (coronary artery disease) Acute Effusion, left knee Acute Failed spinal cord stimulator Acute Hyperlipemia Acute Hyponatremia Acute Lumbago Acute Lumbar stenosis Acute Neurogenic claudication Acute Pseudogout of left knee Acute Ribs, multiple fractures Acute
[2018-02-14] MEDS: SENNOSIDES/DOCUSATE SODIUM TAB PO SCH ×2 (08:35→21:48)
[2018-02-14] MEDS: FAMOTIDINE 20 MG TAB PO SCH ×2 (08:35→21:49)
--- NOTE | 2018-02-14 09:42 | ASMTCASEMG ---
Living Arrangements What is your living Answers: With Spouse arrangement? Who do you live with? Type Of Residence What kind of residence do Answers: House you live in? Discharge Plan Comments Coordination Status Comments Notes: Patient is an 82yo male who was admitted for extensive back surgery. PT/OT/Inpatient rehab evals ordered. D/C plan TBD. CM will follow. Date Signed: 02/14/2018 09:41 AM Electronically Signed By:Audelia Barfield LCSW
[2018-02-14] MEDS: TAMSULOSIN HCL 0.4 MG CAP PO SCH (21:49)
[2018-02-14] MEDS: POLYETHYLENE GLYCOL 3350 17 GM PKT PO PRN (21:49)
[2018-02-14] MEDS: DIAZEPAM 5 MG TAB PO PRN (22:32)
[2018-02-15] MEDS: oxyCODONE IR 5 MG TAB PO PRN ×6 (04:07→19:46)
[2018-02-15] MEDS: MAGNESIUM HYDROXIDE 30 ML UDCUP PO PRN (04:08)
[2018-02-15] MEDS: GABAPENTIN 300 MG CAP PO SCH ×3 (06:52→21:53)
[2018-02-15] MEDS: METHOCARBAMOL 750 MG TAB PO SCH ×4 (06:52→19:45)
[2018-02-15] MEDS: ACETAMINOPHEN 500 MG TAB PO SCH ×3 (06:52→21:53)
[2018-02-15] MEDS: SENNOSIDES/DOCUSATE SODIUM TAB PO SCH ×2 (08:49→19:45)
[2018-02-15] MEDS: FAMOTIDINE 20 MG TAB PO SCH ×2 (08:49→19:45)
[2018-02-15] MEDS ORDERED: MAGNESIUM CITRATE 300 ML BOTTLE PO PRN (09:46)
--- NOTE | 2018-02-15 09:56 | NEUSURGPN ---
Date of Surgery: 02/13/18 Post Op Day: 2 Assessment/Plan: Assessment: 82 yr old s/p L1-2, L2-3 TLIF with tie into existing hardware for lower back pain POD#2 Plan: -Transfer to floor -PT/OT -Pain management- off of [employer] -Wear brace when out of bed -Post op xrays stable, hardware in good placement -MARKUS drain to be removed today -Constipation: bowel regimen, Mg Citrate if needed -Discussed with Dr. Delgado -Please call neurosurgery with questions/concerns Subjective: Having pain localized to the back. Has not had a BM. No LE symptoms. Objective: Awake. Alert. PERRL Muscle strength full at 5/5 Sensation intact Catheter Insertion Date: 02/13/18 - Physician Discussed Patient with : Danny Neurosurgery Physical Exam - Vitals, I&O, Labs I and O 02/14/18 02/15/18 02/16/18 05:59 05:59 05:59 Intake Total 4580 1850 Output Total 1465 940 Balance 3115 910 Weight 105.233 kg Intake: Oral (ml) 1000 1700 IV Intake (ml) 2675 IV Infused (ml) 905 150 Ns 1,000 ml @ 75 mls/hr 905 150 IV CONT GRICEL Rx#: [id number] Output: Urine (ml) 750 700 Catheter 750 Urinal 700 Estimated Blood Loss (ml) 400 MARKUS Drain Output (ml) 315 240 #1 Left Back Trent 315 240 Spring Other: Number of Voids Catheter 2 Vital Signs Temp Pulse Resp BP Pulse Ox 36.5 C 100 16 108/57 L 95 02/15/18 08:00 02/15/18 08:00 02/15/18 08:00 02/15/18 08:00 02/15/18 08:00 Laboratory Results 02/14/18 05:48 02/14/18 05:48 ICD10 Worksheet Patient Problems: Problems Problem Status Onset CAD (coronary artery disease) Acute Effusion, left knee Acute Failed spinal cord stimulator Acute Hyperlipemia Acute Hyponatremia Acute Lumbago Acute Lumbar stenosis Acute Neurogenic claudication Acute Pseudogout of left knee Acute Ribs, multiple fractures Acute
[2018-02-15] MEDS: metFORMIN HCL 500 MG TAB PO SCH (17:42)
[2018-02-15] MEDS: CITALOPRAM 20 MG TAB PO SCH (17:42)
[2018-02-15] MEDS: TAMSULOSIN HCL 0.4 MG CAP PO SCH (19:45)
[2018-02-15] MEDS ORDERED: ZOLPIDEM TARTRATE 5 MG TAB PO SCH (21:00)
[2018-02-15] MEDS ORDERED: ROSUVASTATIN CALCIUM 10 MG TAB PO SCH (21:00)
[2018-02-15] MEDS ORDERED: METOPROLOL SUCCINATE XR 25 MG TAB PO SCH (21:00)
[2018-02-15] MEDS ORDERED: CHOLECALCIFEROL VIT D3 2,000 UNITS TAB/CAP PO SCH (21:00)
[2018-02-15] MEDS ORDERED: FINASTERIDE 5 MG TAB PO SCH (21:00)
[2018-02-15] MEDS: ONDANSETRON DISINTEGRATING 4 MG TAB PO PRN (21:02)
[2018-02-15] MEDS: DIAZEPAM 5 MG TAB PO PRN (21:53)
[2018-02-16] MEDS: oxyCODONE IR 5 MG TAB PO PRN ×3 (00:38→11:15)
[2018-02-16] MEDS: ONDANSETRON DISINTEGRATING 4 MG TAB PO PRN (00:38)
[2018-02-16] MEDS: GABAPENTIN 300 MG CAP PO SCH (05:31)
[2018-02-16] MEDS: ACETAMINOPHEN 500 MG TAB PO SCH (05:31)
[2018-02-16] MEDS: METHOCARBAMOL 750 MG TAB PO SCH ×2 (05:31→11:15)
--- NOTE | 2018-02-16 08:31 | NEUSURGPN ---
Date of Surgery: 02/13/18 Post Op Day: 3 Assessment/Plan: Assessment: 82 yr old s/p L1-2, L2-3 TLIF with tie into existing hardware for lower back pain POD#3 Plan: -PT/OT -Pain controlled on orals -Wear brace when out of bed -Post op xrays stable, hardware in good placement -MARKUS drain removed on 02/15 -Constipation: bowel regimen, Mg Citrate if needed, suppository -Home today if has BM -Please call neurosurgery with questions/concerns Subjective: No overnight issues. No BM. Back pain controlled. Objective: Awake. Alert. PERRL Muscle strength full at 5/5 Sensation intact Ambulating with therapy Catheter Insertion Date: 02/13/18 Neurosurgery Physical Exam - Vitals, I&O, Labs I and O 02/15/18 02/16/18 02/17/18 05:59 05:59 05:59 Intake Total 1850 500 Output Total 940 200 Balance 910 300 Intake: Oral (ml) 1700 500 IV Infused (ml) 150 Ns 1,000 ml @ 75 mls/hr 150 IV CONT GRICEL Rx#: [id number] Output: Urine (ml) 700 200 Toilet 200 Urinal 700 MARKUS Drain Output (ml) 240 #1 Left Back Trent 240 Spring Other: Intake Quantity Yes Sufficient Number of Voids Catheter 2 Toilet 1 Number of Stools Toilet 1 Vital Signs Temp Pulse Resp BP Pulse Ox 37.4 C 95 18 148/74 H 93 02/15/18 23:29 02/15/18 23:29 02/15/18 23:29 02/15/18 23:29 02/15/18 23:29 Laboratory Results 02/14/18 05:48 02/14/18 05:48 ICD10 Worksheet Patient Problems: Problems Problem Status Onset CAD (coronary artery disease) Acute Effusion, left knee Acute Failed spinal cord stimulator Acute Hyperlipemia Acute Hyponatremia Acute Lumbago Acute Lumbar stenosis Acute Neurogenic claudication Acute Pseudogout of left knee Acute Ribs, multiple fractures Acute
[2018-02-16] MEDS: MAGNESIUM HYDROXIDE 30 ML UDCUP PO PRN (08:44)
[2018-02-16] MEDS ORDERED: MAGNESIUM CITRATE 300 ML BOTTLE PO ONE (08:45)
[2018-02-16] MEDS: FAMOTIDINE 20 MG TAB PO SCH (08:45)
[2018-02-16] MEDS: SENNOSIDES/DOCUSATE SODIUM TAB PO SCH (08:45)
[2018-02-16] MEDS: metFORMIN HCL 500 MG TAB PO SCH ×2 (08:45→08:50)
[2018-02-16] MEDS: CITALOPRAM 20 MG TAB PO SCH (08:45)
[2018-02-16] MEDS: POLYETHYLENE GLYCOL 3350 17 GM PKT PO PRN (08:49)
[2018-02-16] MEDS ORDERED: ENOXAPARIN 40 MG/0.4 ML SYR SC SCH (09:00)
[2018-02-16] MEDS ORDERED: FAMOTIDINE 20 MG TAB PO PRN (09:00)
[2018-02-16] MEDS ORDERED: HYDROCHLOROTHIAZIDE 25 MG TAB PO SCH (09:00)
[2018-02-16 10:31] VITALS: BP 129/65; PULSE 79; RESP 16; TEMP 96.6; O2SAT 94
[2018-02-17] MEDS ORDERED: ARIPiprazole 5 MG TAB PO SCH (09:00)
== END 2018-02-16 13:37 | disposition home or self-care (01) | DRG 460 ==
LOC: F3N 05:52 → F2N 14:08 → F3N 02-15 12:47
PROVIDERS: ADMIT Neurological Surgery; ATTEND Neurological Surgery
DX: M43.16 Spondylolisthesis, lumbar region (principal); M51.36 Other intervertebral disc degeneration, lumbar region; M48.061 Spinal stenosis, lumbar region without neurogenic claudication; M10.9 Gout, unspecified; I25.10 Atherosclerotic heart disease of native coronary artery without angina pectoris; Z95.1 Presence of aortocoronary bypass graft; Z95.5 Presence of coronary angioplasty implant and graft; Z98.1 Arthrodesis status
CPT/HCPCS: 97116-GP; 97161-GP; 97165-GO; 97530-GP; 97535-GO; C1713; G8978-GP-CI; G8978-GP-CJ; G8979-GP-CI; G8980-GP-CI; G8987-GO-CI; G8988-GO-CI; J0171; J0690; J1100; J1170; J1650; J2250; J2270; J2370; J2405; J2704; J3010

== ENCOUNTER → 2018-03-31 | Outpatient (CLI) | payer OTHER | LOC: FIMAGING 15:48 | PROVIDERS: ATTEND Physician Assistant | DX: Z09 Encounter for follow-up examination after completed treatment for conditions other than malignant neoplasm (principal); M54.5 Low back pain; M43.16 Spondylolisthesis, lumbar region; Z98.1 Arthrodesis status ==

== ENCOUNTER → 2018-05-20 | Outpatient (CLI) | payer OTHER | LOC: FIMAGING 07:32 | PROVIDERS: ATTEND Physician Assistant | DX: Z98.1 Arthrodesis status (principal); M54.5 Low back pain ==

== ENCOUNTER → 2018-08-20 | Outpatient (CLI) | payer OTHER | LOC: FIMAGING 15:11 | PROVIDERS: ATTEND Physician Assistant | DX: Z98.1 Arthrodesis status (principal) ==

== ENCOUNTER → 2018-09-08 | Outpatient (CLI) | payer OTHER | LOC: FIMAGING 18:50 | PROVIDERS: ATTEND Physician Assistant | DX: Z09 Encounter for follow-up examination after completed treatment for conditions other than malignant neoplasm (principal); Z98.1 Arthrodesis status; M48.05 Spinal stenosis, thoracolumbar region; M48.061 Spinal stenosis, lumbar region without neurogenic claudication ==

== ENCOUNTER → 2019-04-08 | Outpatient (CLI) | payer OTHER | LOC: BHFA 10:00 | PROVIDERS: ATTEND Internal Medicine Cardiovascular Disease | DX: I48.91 Unspecified atrial fibrillation (principal); I25.10 Atherosclerotic heart disease of native coronary artery without angina pectoris; I35.1 Nonrheumatic aortic (valve) insufficiency ==